=== PATIENT | female | born 1965 | race Caucasian/White ===

== ENCOUNTER 2021-11-08 16:55 | Inpatient (IN) ==
[2021-11-08] MEDS ORDERED: cefTRIAXone SODIUM 2,000 MG/70 ML BAG IV STA (18:07)
[2021-11-08] MEDS ORDERED: SODIUM CHLORIDE 0.9% 1000ML 1,000 ML IV ONE (18:07)
--- NOTE | 2021-11-08 18:14 | Emergency Department Note ---
History of Present Illness General Chief complaint: Leg Injury/Pain Time Seen by Provider: 11/08/21 17:56 History of Present Illness Maximum Pain Intensity: 10 This 56-year-old female patient presents to the emergency department today via private vehicle for evaluation of concern for left lower extremity redness and swelling. The patient states she fell while in [place] September 29. She states she broke her tibia/fibula and had surgery on September 30 in [place]. She states she was admitted to the hospital then subsequently spent 3 weeks in a nursing facility for rehab. The next day, after she was discharged, her daughter drove her back to [place] from [place]. She states approximately 1 to 2 weeks ago, she noticed some redness and increased swelling and pain of the left lower extremity. She has a home health nurse who contacted her PCP, requesting antibiotics for an infection. The patient states there has been some increased discharge from the surgical site. She denies any associated fever. She has been taking Keflex for the past several days with no improvement in her symptoms. She notes her's PCP has not seen her for this problem. She is scheduled to see [facility] orthopedics on 11/16/2021, but has not followed up locally with anybody regarding her injury. The patient denies any body aches, chills, nausea, vomiting, headache, dizziness, other associated symptoms. She denies any history of DVT or PE. She rates her pain 10/10 with no relief. Past Med/Surg History Medical History Degenerative disc disease GERD (gastroesophageal reflux disease) Hypertension Pre-diabetes Social History Smoking Status: Never smoker Feels Safe at Home: Yes Review of Systems A total of 10 systems reviewed and were otherwise negative Physical Exam Vital Signs Vital Signs - 24 hr 11/08/21 16:52 11/08/21 19:25 11/08/21 21:12 Temperature 36.4 C L Temperature Source Oral Pulse Rate 99 H Pulse Rate [Apical] 79 81 Pulse Rhythm [Apical] Regular Regular Pulse Strength [Apical] Normal Normal Respiratory Rate 18 22 20 Respiratory Effort / Characteristics Non-Labored Non-Labored Spontaneous Non-Labored Spontaneous Respiratory Depth Normal Normal Normal Respiratory Pattern Regular Blood Pressure 134/67 Blood Pressure [Right Arm] 126/81 134/62 Blood Pressure Mean 89 Blood Pressure Mean [Right Arm] 96 86 Pulse Oximetry 95 95 96 Oxygen Delivery Method Room Air Room Air Sepsis Recent Fever Within 48 Hours No Sepsis New/Unexplained Change in Mental Status No Sepsis Action Taken by Nursing No Action Required VITALS: Vitals are noted on the nurse's note and reviewed by myself. Vital signs stable. GENERAL: This is a 56-year-old obese white female, in no acute distress, nondi aphoretic, well-developed well-nourished. SKIN: The skin was without rashes, erythema, edema, or bruising. There is no tenting of the skin. Capillary refill less than 2 seconds. HEAD: Normocephalic atraumatic. EYES: Conjunctivae without injection, sclerae without icterus. NECK: Supple without nuchal rigidity. Cervical spine is nontender. No JVD. HEART: Regular rate and rhythm without murmurs gallops or rubs. LUNGS: Clear to auscultation bilaterally without wheezes, rales or rhonchi. No retractions or accessory muscle use. ABDOMEN: Positive bowel sounds x 4. Normal tympanic percussion. Soft, nontender, without masses or organomegaly. Holcomb sign negative. No guarding or rebound tenderness. MUSCULOSKELETAL: Faint erythema and edema noted at the left lower extremity extending from the knee to the toes. There is diffuse tenderness to palpation. There are surgical incision sites on the lateral and medial aspect of the proximal left tibia/fib with open wounds and active discharge in these areas. Otherwise, no muscle atrophy, erythema, or edema noted. Full range of motion without joint tenderness in all extremities. Normal gait. Strength 5/5 throughout. NEURO: Patient was alert and oriented to person place and time. Normal sensation to light and sharp touch. Deep tendon reflexes 2+ throughout. No focal neurological deficits. Course Course The patient was seen and evaluated as above. An order was placed for continuous cardiac monitoring. The monitor shows a normal sinus rhythm at a rate of 79 bpm. IV access obtained, labs drawn. Patient medicated with IV fluids and Rocephin. X-ray imaging performed and reviewed by myself and radiologist as noted. Labs reviewed by myself. I discussed the case with my attending physician. Ultrasound imaging performed and reviewed by myself and radiologist as noted. I discussed the findings with the patient at bedside. I discussed the case with my attending. She did see and evaluate the patient. Retained staple was removed. I discussed the case with ED case edie. I discussed the case with [facility] He did agree to see and evaluate the patient for admission. I discussed the case with Dr. Rodriguez. He did agree to consult on the patient tomorrow. He did review images and was agreeable with DVT treatment at this time, will discontinue or adjust if the patient will require management in the operating room. Administered Medications Discontinued Medications Ceftriaxone Sodium (Rocephin) 2,000 mg in 70 mls @ 140 mls/hr IV NOW STA Stop: 11/08/21 18:36 Last Infusion: 11/08/21 20:36 Dose: 0 mls/hr Documented by: [id number] Admin: 11/08/21 19:32 Dose: 140 mls/hr Documented by: [id number] Sodium Chloride (Nss 1000ml) 1,000 mls @ 999 mls/hr IV .Q1H1M ONE Stop: 11/08/21 19:07 Last Infusion: 11/08/21 20:36 Dose: 0 mls/hr Documented by: [id number] Admin: 11/08/21 19:32 Dose: 999 mls/hr Documented by: [id number] Morphine Sulfate (Morphine Sulfate 4 Mg/Ml 1 Ml Carp\Vial) 4 mg IV NOW STA Stop: 11/08/21 21:49 Last Admin: 11/08/21 22:00 Dose: 4 mg Documented by: [id number] Ondansetron HCl (Ondansetron Inj 2 Mg/Ml 2 Ml Vial) 4 mg IV NOW STA Stop: 11/08/21 21:49 Last Admin: 11/08/21 22:00 Dose: 4 mg Documented by: [id number] Medical Decision Making Differential Diagnosis Cellulitis, abscess, MRSA infection, DVT, necrotizing fasciitis, dermatitis, drug eruption, allergic reaction, as well as other pathologies. Medical Records Attestation: I reviewed the patient's medical records. Home Medications Current Medication List: was personally reviewed by me Laboratory Data No leukocytosis, anemia, thrombocytopenia. Renal, hepatic function, and electrolytes without significant abnormality. ESR 58, CRP 0.58. Result diagrams: 11/08/21 19:09 11/08/21 19:09 Lab Results 11/08/21 11/08/21 11/08/21 Range/Units 19:09 19:09 19:09 WBC 6.99 (4.8-10.8) K/uL RBC 4.44 (4.2-5.4) M/uL Hgb 12.5 (12.0-16.0) g/dL Hct 39.7 (37-47) % MCV 89.4 (80-100) fL MCH 28.2 (25-34) pg MCHC 31.5 L (32-36) g/dL RDW Std Deviation 51.1 H (36.4-46.3) fL RDW Coeff of Italo 15.7 H (11.5-14.5) % Plt Count 371 (130-400) K/uL MPV 8.8 (7.4-10.4) fL Neutrophils % (Manual) 67.3 % Lymphocytes % (Manual) 24.1 % Monocytes % (Manual) 4.3 % Eosinophils % (Manual) 4.3 % Neutrophils # (Manual) 4.70 (1.4-6.5) K/uL Total Absolute Neuts 4.70 (1.4-6.5) K/uL Lymphocytes # (Manual) 1.68 (1.2-3.4) K/uL Total Abs Lymphocytes 1.68 (1.2-3.4) K/uL Monocytes # (Manual) 0.30 (0.11-0.59) K/uL Eosinophils # (Manual) 0.30 (0-0.5) K/uL RBC Morphology Unremarkable ESR 58 H (0-30) mm/hr Sodium 134 L (136-145) mmol/L Potassium 4.6 (3.5-5.1) mmol/L Chloride 102 (98-107) mmol/L Carbon Dioxide 24 (21-32) mmol/L Anion Gap 8 (3-11) BUN 16 (6-23) mg/dl Creatinine 0.57 L (0.6-1.2) mg/dl Est Cr Clr Drug Dosing Not Reportable Est GFR ( Amer) 121.0 ml/min Est GFR (Non-Af Amer) 104.4 ml/min BUN/Creatinine Ratio 28.1 H (10-20) Glucose 119 H (70-99(Fasting)) mg/dl Calcium 10.8 H (8.5-10.1) mg/dl Total Bilirubin 0.4 (0.2-1.0) mg/dl AST 14 (13-39) U/L ALT 15 (7-52) U/L Alkaline Phosphatase 85 (34-104) U/L C-Reactive Protein 0.58 H (0-0.5) mg/dl Total Protein 7.6 (6.0-8.3) gm/dl Albumin 4.1 (3.4-5.0) gm/dl Globulin 3.5 (2.5-4.0) gm/dl Albumin/Globulin Ratio 1.2 (0.9-2) Imaging Data Radiologist's Impression: Tibia/Fibula X-Ray 11/08/21 18:07 XR tibia fibula LT 2V CLINICAL HISTORY: LLE pain, red, swelling, s/p surgery 09/30/2021 Comparison: None available at the time of this dictation. TECHNIQUE: 2 radiographic views of the left leg were obtained. FINDINGS: There is plate and screw fixation hardware about the tibia. Radiolucencies are seen compatible with fractures with bony bridging compatible with healing changes. The alignment is anatomic. Joint spaces are well-preserved. Soft tissue swelling is seen. This is most prominent about the knee. IMPRESSION: 1. Soft tissue swelling is seen most prominently about the knee, clinical correlation for cellulitis is recommended. 2. Comminuted fracture of the tibial plateau which is likely subacute, transfixed by plate and screw fixation and with healing changes. ACT 112: Negative or not required by law. Electronically signed by: Mykel Hodges M.D. 11/08/2021 7:05 PM Venous Doppler Study 11/08/21 18:07 US venous doppler LE LT CLINICAL HISTORY: pain, red, swelling, s/p surg 09/30/2021 TECHNIQUE: Left lower extremity real-time compression venous ultrasound with Color Doppler imaging. Utilizing real-time ultrasonic imaging multiple real time high-resolution ultrasonic images with compression and noncompression maneuvers of the deep venous system in addition to color doppler imaging were performed from the common femoral vein through the proximal calf veins. COMPARISON: None available at the time of this dictation. FINDINGS: Limited exam due to patient intolerance. A nonocclusive thrombus is seen in the left common femoral vein. No additional thrombus is noted. Impression: Nonocclusive thrombus is in the left common femoral vein. ACT 112: Negative or not required by law. Electronically signed by: Mykel Hodges M.D. 11/08/2021 8:57 PM Blood Pressure Blood Pressure Findings: Normal blood pressure MDM Narrative This 56-year-old female patient presents to the emergency department today approximately 5 weeks status post surgery for left tibial plateau and fibular fracture. Patient does have hardware placed. She developed some increased redness, swelling, and discharge from dehisced areas of the incision sites on the left lower extremity was concern for infection. Given the patient's recent surgery, admission to rehab facility, as well as long car ride from [place] to [place], I am highly concerned for DVT. Ultrasound imaging was positive for thrombus in the left common femoral vein. The patient has not followed with local orthopedics and does not have any established care here locally. Given these barriers to care, I am concerned the patient will struggle with outpatient treatment for the DVT. I do also feel that she will not need orthopedic consultation. The [facility]. I did discuss the case with the [facility] orthopedics surgeon on- call, Dr. Rodriguez. He did review images and agreed to see the patient tomorrow in consultation. Please see hospitalist and orthopedics dictation regarding ongoing management and care of this patient. The chart was completed utilizing [employer] Speech voice recognition software. Grammatical errors, random word insertions, pronoun errors, and incomplete sentences are an occasional consequence of this system due to software limitations, ambient noise, and hardware issues. Any formal questions or concerns about the content, text, or information contained within the body of this dictation should be directly addressed to the provider for clarification. Impression & Plan Acute deep vein thrombosis (DVT) of left lower extremity, Closed fracture of tibial plateau, Deep incisional surgical site infection Discharge Plan Visit Data Chief Complaint: Leg Injury/Pain ED Provider: Kristel Oh ED Midlevel Provider: Rocio Norman Discharge Problem: Acute deep vein thrombosis (DVT) of left lower extremity, Closed fracture of tibial plateau, Deep incisional surgical site infection Patient Disposition: Admitted As Inpatient Forms Stand Alone Forms: [facility] Referrals Referrals: PCP,NO [Primary Care Provider] - Discharge Problem: Acute deep vein thrombosis (DVT) of left lower extremity Qualifiers: Affected thrombotic vein of extremity: femoral Qualified Code(s): I82.412 - Acute embolism and thrombosis of left femoral vein Closed fracture of tibial plateau Qualifiers: Encounter type: sequela Laterality: left Qualified Code(s): S82.142S - Displaced bicondylar fracture of left tibia, sequela
--- NOTE | 2021-11-08 19:06 | XRay Report ---
XR tibia fibula LT 2V CLINICAL HISTORY: LLE pain, red, swelling, s/p surgery 09/30/2021 Comparison: None available at the time of this dictation. TECHNIQUE: 2 radiographic views of the left leg were obtained. FINDINGS: There is plate and screw fixation hardware about the tibia. Radiolucencies are seen compatible with f ractures with bony bridging compatible with healing changes. The alignment is anatomic. Joint spaces are well-preserved. Soft tissue swelling is seen. This is most prominent about the knee. IMPRESSION: 1. Soft tissue swelling is seen most prominently about the knee, clinical correlation for cellulitis is recommended. 2. Comminuted fracture of the tibial plateau which is likely subacute, transfixed by plate and screw fixation and with healing changes. ACT 112: Negative or not required by law. Electronically signed by: Mykel Hodges M.D. 11/08/2021 7:05 PM
[2021-11-08 19:56] LABS: Alanine Aminotransferase 15 U/L (7-52); Albumin Globulin Ratio 1.2 (0.9-2); Albumin Level 4.1 gm/dl (3.4-5.0); Alkaline Phosphatase 85 U/L (34-104); Anion Gap 8 (3-11); Aspartate Aminotransferase 14 U/L (13-39); BUN Creatinine Ratio 28.1 (10-20); Bilirubin,Total 0.4 mg/dl (0.2-1.0); Blood Urea Nitrogen 16 mg/dl (6-23); C Reactive Protein 0.58 mg/dl (0-0.5); Calcium 10.8 mg/dl (8.5-10.1); Carbon Dioxide 24 mmol/L (21-32); Chloride 102 mmol/L (98-107); Est GFR (Non-African American) 104.4 ml/min; Globulin 3.5 gm/dl (2.5-4.0); Glucose 119 mg/dl (70-99(Fasting)); Potassium 4.6 mmol/L (3.5-5.1); Sodium 134 mmol/L (136-145); Total Protein 7.6 gm/dl (6.0-8.3)
[2021-11-08 19:57] LABS: Hematocrit (blood only) 39.7 % (37-47); Hemoglobin 12.5 g/dL (12.0-16.0); Mean Corpuscular Hemoglobin 28.2 pg (25-34); Mean Corpuscular Hgb Conc 31.5 g/dL (32-36); Mean Corpuscular Volume 89.4 fL (80-100); Mean Platelet Volume 8.8 fL (7.4-10.4); Platelet Count 371 K/uL (130-400); RDW Coefficient of Variation 15.7 % (11.5-14.5); RDW Standard Deviation 51.1 fL (36.4-46.3); Red Blood Count 4.44 M/uL (4.2-5.4); White Blood Count 6.99 K/uL (4.8-10.8)
[2021-11-08 20:09] LABS: ALC (manual) 1.68 K/uL (1.2-3.4); Eosinophils % (manual) 4.3 %; Lymphocytes # (manual) 1.68 K/uL (1.2-3.4); Lymphocytes % (manual) 24.1 %; Monocytes % (manual) 4.3 %; Neutrophils % (manual) 67.3 %; RBC Morphology Unremarkable
--- NOTE | 2021-11-08 20:58 | Ultrasound Report ---
US venous doppler LE LT CLINICAL HISTORY: pain, red, swelling, s/p surg 09/30/2021 TECHNIQUE: Left lower extremity real-time compression venous ultrasound with Color Doppler imaging. U tilizing real-time ultrasonic imaging multiple real time high-resolution ultrasonic images with compr ession and noncompression maneuvers of the deep venous system in addition to color doppler imaging we re performed from the common femoral vein through the proximal calf veins. COMPARISON: None available at the time of this dictation. FINDINGS: Limited exam due to patient intolerance. A nonocclusive thrombus is seen in the left common femoral v ein. No additional thrombus is noted. Impression: Nonocclusive thrombus is in the left common femoral vein. ACT 112: Negative or not required by law. Electronically signed by: Mykel Hodges M.D. 11/08/2021 8:57 PM
[2021-11-08] MEDS ORDERED: ONDANSETRON INJ 2 MG/ML 2 ML VIAL IV STA (21:48)
[2021-11-08] MEDS ORDERED: MoRPHine SULFATE 4 MG/ML 1 ML CARP\\VIAL IV STA (21:48)
--- NOTE | 2021-11-08 23:00 | Emergency Department Note ---
ED Visit Note I was consulted by the Advanced Practice Provider. I saw the patient personally and performed a substantive portion of the visit. This includes aspects of the HPI, MDM, diagnostic interpretations, and disposition/plan. We did remove dressings to visualize incisions and drainage from wounds. Staple seen on xray was noted on exam. Patient updated on all results. . : Acute deep vein thrombosis (DVT) of left lower extremity Qualifiers: Affected thrombotic vein of extremity: femoral Qualified Code(s): I82.412 - Acute embolism and thrombosis of left femoral vein Closed fracture of tibial plateau Qualifiers: Encounter type: sequela Laterality: left Qualified Code(s): S82.142S - Displaced bicondylar fracture of left tibia, sequela
[2021-11-09] MEDS ORDERED: oxyCODONE HCL IR 5 MG TAB (IMMEDIATE RELEASE) PO PRN
[2021-11-09] MEDS ORDERED: VANCOMYCIN CONSULT ACTIVE PRN
[2021-11-09] MEDS ORDERED: POLYETHYLENE (MIRALAX) 17 GM PACK PO PRN
[2021-11-09] MEDS ORDERED: Heparin IV Adult Wt-Based Standard *NO* Bolus Protocol IV ONE
[2021-11-09] MEDS ORDERED: VANCOMYCIN HCL 1,000 MG in SODIUM CHLORIDE 0.9% 250 ML IV SCH
[2021-11-09] MEDS ORDERED: PIPERACILLIN/TAZOBACTAM 3.375 GM in DEXTROSE 5% 100 ML IV SCH
[2021-11-09] MEDS ORDERED: HEPARIN SODIUM/DEXTROSE 25,000 UNITS/500 ML BAG IV SCH
[2021-11-09] MEDS ORDERED: ACETAMINOPHEN 325 MG TAB PO PRN
[2021-11-09] MEDS ORDERED: CARBOHYDRATES FOR HYPOGLYCEMIA PO PRN (00:45)
[2021-11-09] MEDS ORDERED: GLUCAGON FOR INJ 1 MG VIAL IM PRN (00:45)
[2021-11-09] MEDS ORDERED: GLUCOSE 40% GEL 15 GM TUBE PO PRN (00:45)
[2021-11-09] MEDS ORDERED: DEXTROSE 50% 50 ML SYRINGE IV PRN (00:45)
[2021-11-09] MEDS ORDERED: GLUCOSE 10 TABS/TUBE PO PRN (00:45)
[2021-11-09] MEDS ORDERED: PIPERACILLIN/TAZOBACTAM 4.5 GM in DEXTROSE 5% 100 ML IV ONE (01:00)
[2021-11-09] MEDS: SODIUM CHLORIDE 0.9% 1000ML 1,000 ML IV SCH ×2 (01:14→20:49)
--- NOTE | 2021-11-09 01:43 | History and Physical Report ---
DATE OF ADMISSION: 11/08/2021. CHIEF COMPLAINT: Left leg pain. HISTORY OF PRESENT ILLNESS: This is a 56-year-old female with past medical history significant for morbid obesity, history of sleep apnea, but not using CPAP because since she moved from [place] three years ago, she lost her CPAP and not using it, history of hypertension, GERD, history of prediabetes. Presents with left lower extremity infection. The patient was in [place] in the month of September and she had a fall in her daughter's porch on 09/29/21 and had left tibia-fibula fracture status post admitted to hospital for surgical repair 09/30/21 and was seen in a retirement for 3 weeks and on 10/22/2021, she was discharged from retirement and daughter drove her back to [place] the next day on 10/23/2021 and she was in a car for 28 hours. She lives with her sister and she is now having poor ambulatory status and she is not ambulating, she could not put weight on the leg. She only slides from the bed and has a bedside commode. Her family doctor about a week ago given Keflex for 1 week, which she has still 2 more days to go.. She made appointment with orthopedics, but it is not until next month. She says he is not getting better and a lot of pain in the leg which brought her to the hospital. Currently, the patient denies any fever or chills. No headache, no dizziness, no blurred visions, no earache, no runny nose, no sore throat, no cough, no chest pain, no shortness of breath. No nausea, no vomiting, no abdominal pain. Normal bowel and bladder movements.Says she has gallbladder disease and has on and off nausea and diarrhea. ALLERGIES: HYDROXYZINE. PAST MEDICAL HISTORY: As mentioned above. PAST SURGICAL HISTORY: Bilateral hand surgeries, left tibia-fibula surgery. MEDICATIONS: The patient is on aspirin 81 mg p.o. daily, Keflex 500 mg p.o. t.i.d., vitamin D 50,000 Units p.o. weekly, metoprolol succinate 25 mg p.o. a.m., Zofran 4 mg p.o. t.i.d. p.r.n., oxycodone 2.5 to 5 mg p.o. t.i.d. p.r.n., Protonix 40 mg p.o. daily. FAMILY HISTORY: Significant for mother had diabetes and stroke; father had diabetes, heart disease, Alzheimer dementia, back problems. SOCIAL HISTORY: Quit smoking 17 years ago. Alcohol, occasional. 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 Lives with her sister currently. REVIEW OF SYSTEMS: As per HPI. Rest of review of systems is negative. PHYSICAL EXAMINATION: GENERAL: The patient is morbidly obese, not in acute distress. VITAL SIGNS: Temperature 36.4, pulse 82, respiratory rate 20, blood pressure 107/74, oxygen 95% on room air. HEENT: Pupils equal, round and reactive to light. Oral mucosa, absent teeth and moist. NECK: No JVD, no neck masses. CARDIOVASCULAR: S1 and S2 heard. Regular rate and rhythm. No murmur, no gallop. RESPIRATORY SYSTEM: Normal AP diameter. No accessory muscle use. No wheezing, no crackles. ABDOMEN: Soft. Bowel sounds are present, nontender, no distention. CENTRAL NERVOUS SYSTEM: Alert and oriented. Speech is clear. No facial droop. Obeys simple commands. Insight is good. Moves extremities. EXTREMITIES: Left tibia-fibula surgical site has deep open wound and drainage seen. Some erythematous changes seen. Some swelling seen. LABORATORY DATA: WBC , hemoglobin 12.5, hematocrit of 10.7, platelets 371. ESR 58. Sodium 134, potassium 4.6, chloride 102, CO2 of 24, BUN 16, creatinine 0.5, serum glucose 119, calcium 10.8, total bilirubin 0.4, AST 14, ALT 15, alkaline phosphatase 85. C-reactive protein 0.5. SARS-CoV-2 rapid test negative. IMAGING DATA: Venous Doppler is showing nonocclusive thrombus in the left common femoral vein. Tibia-fibula x-ray on the left side, soft tissue swelling that is most prominent about the knee, clinical correlation for cellulitis is recommended. Comminuted fracture of the tibia, fibula, which is likely subacute. with plate and screw fixation with healing changes. ASSESSMENT AND PLAN: This is a 56-year-old female with morbid obesity, hypertension, prediabetes, gastroesophageal reflux disease, who presents with infected left tibia-fibula surgical site. 1. Infected left tibia-fibula surgical site. The patient fell on 09/29/2021, had surgery on 09/30/2021 at [place]. Having some drainage at the surgical site. Seems to have been prescribed Keflex by PCP about a week ago to complete 7 days of course and two days to finish course but , not getting better, so came here. X-ray shows possible cellulitis. Blood culture and wound culture done in the ER. She was given Rocephin. Will continue with vancomycin and Zosyn. Ortho was notified by the ER. Plan to evaluate in the morning. Will admit the patient and monitor.Will get pre operative ekg and cxr and if ok patient should be at acceptable risk to proceed with any planned surgery Await ortho input. 2. Nonocclusive left common femoral deep venous thrombosis. Will place on IV heparin. If a procedure is planned, will then hold it. 3. History of prediabetes: hold home med. Follow HbA1c levels. Insulin sliding scale. 4. History of hypertension: Continue metoprolol. 5. Gastroesophageal reflux disease: Continue Protonix. 6. Morbid obesity: Needs counseling. 7. Deep venous thrombosis prophylaxis: On IV heparin. DISPOSITION: Closely monitor in the medical floor. PT, OT prior to discharge. Social service to help with discharge planning. Job ID: [id number] [facility]OSPITALAlecia
[2021-11-09 02:16] LABS: Basophils # (auto) 0.01 K/uL (0-0.2); Basophils % (auto) 0.1 %; Eosinophils # (auto) 0.44 K/uL (0-0.5); Eosinophils % (auto) 6.4 %; Hematocrit (blood only) 38.7 % (37-47); Immature Granulocytes # (auto) 0.01 K/uL (0.00-0.02); Immature Granulocytes % (auto) 0.1 %; Lymphocytes # (auto) 2.24 K/uL (1.2-3.4); Lymphocytes % (auto) 32.8 %; Mean Corpuscular Hemoglobin 27.7 pg (25-34); Mean Corpuscular Volume 89.4 fL (80-100); Mean Platelet Volume 8.9 fL (7.4-10.4); Monocytes # (auto) 0.56 K/uL (0.11-0.59); Monocytes % (auto) 8.2 %; Neutrophils # (auto) 3.57 K/uL (1.4-6.5); Neutrophils % (auto) 52.4 %; Platelet Count 347 K/uL (130-400); RDW Coefficient of Variation 15.6 % (11.5-14.5); Red Blood Count 4.33 M/uL (4.2-5.4); White Blood Count 6.83 K/uL (4.8-10.8)
[2021-11-09 02:29] LABS: Partial Thromboplastin Ratio 0.9; Partial Thromboplastin Time 24.2 Seconds (21.0-31.0); Prothrombin Time 10.4 Seconds (9.0-12.0)
[2021-11-09] MEDS ORDERED: VANCOMYCIN HCL 2,750 MG in SODIUM CHLORIDE 0.9% 500 ML IV ONE (04:00)
[2021-11-09] MEDS: PIPERACILLIN/TAZOBACTAM 4.5 GM in DEXTROSE 5% 100 ML IV SCH ×3 (06:48→22:06)
[2021-11-09] MEDS: PANTOprazole 40 MG TAB PO SCH (07:37)
[2021-11-09] MEDS: INSULIN ASPART PER UNIT SC SCH ×4 (08:44→21:39)
--- NOTE | 2021-11-09 09:06 | Orthopedic Consultation ---
Date of Consultation November 09, 2021 Assessment & Plan (1) Deep incisional surgical site infection: 4 weeks s/p left knee status post open reduction internal fixation of a left proximal tibia-fibula fracture, concern for postoperative infection and non-healing wound. She is currently on IV Zosyn and vancomycin. Cultures that were taken in the emergency room are currently pending. n.p.o. this morning but she is very angry with me on that. States that she did not eat much yesterday. I did explain to her the importance of being n.p.o. in preparation for possible surgical incision and drainage. I attempted to get a consent for possible Incision and drainage later today with Dr. Rodriguez, but she would not let me go over the consent with her. She said that it's "too much and will break her". Also reveals a normal white blood cell count but an elevated ESR and CRP. Keep her n.p.o. until seen and evaluated by Dr. Rodriguez and a final decision is made. I do think that she most likely would benefit from incision and drainage. She understands and agrees with the plan although she is very upset with me about not letting her eat and would like to "leave this place". Present on Admission?: Yes Supervising Physician Co-Signing Physician Notes I, Dr. Rodriguez, saw and examined the patient and agree with the above findings and plan of care. I too tried to go over the consent and she refused to hear the risks with same complaint as above. She was agreeable to move forward with surgery for I&D LLE and possible wound vac placement. She was placed on the add- on schedule for later today. Continue NPO & IV Abx. History of Present Illness Reason for Consultation: Postoperative wound infection left knee, status post a reduction internal fixation left proximal tib-fib fracture in early September. Requesting Physician: Alecia Rodriguez MD Attending Physician: Alondra Gong MD History of Present Illness Patient is a 56-year-old female who was admitted to [facility] for concerns of left postoperative knee infection. She was in [place] at the beginning of September visiting her daughter and fell off porch. She sustained a left proximal tibial and fibular plateau fractures. She underwent an open reduction internal fixation there. She recently came back to [place] on October 23 by car ride. She did develop some increased pain and swelling in her left leg. She presented to the emergency room yesterday and was found to have a DVT of her left common femoral vein. Also concerns for an open draining wound and probable infection. She states its been draining since Monday. Is been getting worse with pain. She is noticed worsening swelling and redness. She denies any fevers or chills but states she gets frequent hot and cold flashes. She denies any new injury. Denies any pain anywhere else. States that her leg is just very painful. Allergies Allergy/AdvReac Type Severity Reaction Status Date / Time hydroxyzine Allergy Severe Anaphylaxis Verified 11/09/21 00:25 Home Medications Medication Instructions Recorded Confirmed Type acetaminophen 500 mg tablet 1,000 mg PO BID PRN 11/08/21 11/08/21 History aspirin 81 mg tablet,delayed 81 mg PO DAILY 11/08/21 11/08/21 History release cephalexin 500 mg capsule 500 mg PO TID 11/08/21 11/08/21 History cholecalciferol (vitamin D3) 1,250 50,000 unit PO WK 11/08/21 11/08/21 History mcg (50,000 unit) tablet dapagliflozin 10 mg tablet 10 mg PO DAILY 11/08/21 11/08/21 History (Farxiga) ibuprofen 200 mg tablet (Motrin IB) 600 mg PO BID PRN 11/08/21 11/08/21 History metoprolol succinate 25 mg 25 mg PO QPM 11/08/21 11/08/21 History tablet,extended release 24 hr naproxen sodium 220 mg tablet 440 mg PO .WITH MAXINE MEAL PRN 11/08/21 11/08/21 History (Aleve) ondansetron HCl 4 mg tablet 4 mg PO TID PRN 11/08/21 11/08/21 History oxycodone 5 mg tablet 2.5 - 5 mg PO TID PRN 11/08/21 11/08/21 History pantoprazole 40 mg tablet,delayed 40 mg PO DAILY 11/08/21 11/08/21 History release Patient History Medical History Degenerative disc disease GERD (gastroesophageal reflux disease) Hypertension Pre-diabetes Spinal stenosis Tibia/fibula fracture Social History Smoking Status: Never smoker Second Hand Exposure: No; Do You Dip or Chew Tobacco: No; Hx Alcohol Use: Yes Alcohol type: beer Hx Substance Use: No Preferred Language: Swedish Carbonizer Required: No Beliefs That Will Affect Care: None Current Living Situation Comment: SISTER LIVES WITH HER Feels Safe at Home: Yes Safety Concerns: Feels Safe At This Time Assistive Devices: Wheelchair Review of Systems Review of Systems: As per HPI. Physical Exam Musculoskeletal: Exam of her left lower extremity reveals edema down into her left foot. Her left foot is nontender with palpation. Her posterior tibial and dorsalis pedis pulses are 1+. Distal sensation seems to be normal. She does have full range of motion of her ankle and toes without any discomfort. She is able to independently straight leg raise her left leg. She can also flex her left knee to about 80 degrees today. She has no pain with that although she does have pain with palpation of her surgical incisions both medially and laterally. Laterally there are 2 open areas at the lateral incision proximally the most proximal incision does have some serous sanguinous, drainage coming from it. She also has about a nickel sized opening into the incision. No kelly rdware is seen through that opening but probably about 3 cm deep. Rest of the incision is intact but erythematous and tender to palpation. There is also warmth. The medial incision is also edematous and tender it is warm there is a small area that is draining some serous sanguinous yellow type drainage. Nothing is able to be expressed from it today but it is on the dressing. She tolerates gentle roll logrolling of her left leg. Calf is also tender to palpation. She is pretty much diffusely tender throughout the left leg. There are some mild erythema in the left calf area. Strength of her left leg is 5/5. Results & Data ([facility]) Vital Signs (Past 12 Hours) Vital Signs Temp Pulse Pulse Resp BP Pulse Ox 11/09/21 07:57 36.6 C 90 18 129/83 93 11/09/21 00:07 36.5 C 90 24 136/81 95 11/08/21 22:35 82 20 107/74 95 11/08/21 21:12 81 20 134/62 96 Laboratory Results 11/09/21 11/09/21 11/09/21 Range/Units 08:23 01:57 01:57 WBC 6.83 (4.8-10.8) K/uL RBC 4.33 (4.2-5.4) M/uL Hgb 12.0 (12.0-16.0) g/dL Hct 38.7 (37-47) % MCV 89.4 (80-100) fL MCH 27.7 (25-34) pg MCHC 31.0 L (32-36) g/dL RDW Std Deviation 51.0 H (36.4-46.3) fL RDW Coeff of Italo 15.6 H (11.5-14.5) % Plt Count 347 (130-400) K/uL MPV 8.9 (7.4-10.4) fL Immature Gran % (Auto) 0.1 % Neut % (Auto) 52.4 % Lymph % (Auto) 32.8 % Tyrrell % (Auto) 8.2 % Eos % (Auto) 6.4 % Baso % (Auto) 0.1 % Neut # (Auto) 3.57 (1.4-6.5) K/uL Lymph # (Auto) 2.24 (1.2-3.4) K/uL Tyrrell # (Auto) 0.56 (0.11-0.59) K/uL Eos # (Auto) 0.44 (0-0.5) K/uL Baso # (Auto) 0.01 (0-0.2) K/uL Immature Gran # (Auto) 0.01 (0.00-0.02) K/uL Neutrophils % (Manual) % Lymphocytes % (Manual) % Monocytes % (Manual) % Eosinophils % (Manual) % Neutrophils # (Manual) (1.4-6.5) K/uL Total Absolute Neuts (1.4-6.5) K/uL Lymphocytes # (Manual) (1.2-3.4) K/uL Total Abs Lymphocytes (1.2-3.4) K/uL Monocytes # (Manual) (0.11-0.59) K/uL Eosinophils # (Manual) (0-0.5) K/uL RBC Morphology ESR (0-30) mm/hr PT 10.4 (9.0-12.0) Seconds INR 1.0 (0.9-1.1) APTT 24.2 (21.0-31.0) Seconds PTT Ratio 0.9 Sodium (136-145) mmol/L Potassium (3.5-5.1) mmol/L Chloride (98-107) mmol/L Carbon Dioxide (21-32) mmol/L Anion Gap (3-11) BUN (6-23) mg/dl Creatinine (0.6-1.2) mg/dl Est Cr Clr Drug Dosing Est GFR ( Amer) ml/min Est GFR (Non-Af Amer) ml/min BUN/Creatinine Ratio (10-20) Glucose (70-99(Fasting)) mg/dl POC Glucose 104 H (70-99) mg/dl Calcium (8.5-10.1) mg/dl Total Bilirubin (0.2-1.0) mg/dl AST (13-39) U/L ALT (7-52) U/L Alkaline Phosphatase (34-104) U/L C-Reactive Protein (0-0.5) mg/dl Total Protein (6.0-8.3) gm/dl Albumin (3.4-5.0) gm/dl Globulin (2.5-4.0) gm/dl Albumin/Globulin Ratio (0.9-2) SARS-CoV-2, RNA, NAAT (NEGATIVE) 11/08/21 11/08/21 11/08/21 Range/Units 22:01 19:09 19:09 WBC (4.8-10.8) K/uL RBC (4.2-5.4) M/uL Hgb (12.0-16.0) g/dL Hct (37-47) % MCV (80-100) fL MCH (25-34) pg MCHC (32-36) g/dL RDW Std Deviation (36.4-46.3) fL RDW Coeff of Italo (11.5-14.5) % Plt Count (130-400) K/uL MPV (7.4-10.4) fL Immature Gran % (Auto) % Neut % (Auto) % Lymph % (Auto) % Tyrrell % (Auto) % Eos % (Auto) % Baso % (Auto) % Neut # (Auto) (1.4-6.5) K/uL Lymph # (Auto) (1.2-3.4) K/uL Tyrrell # (Auto) (0.11-0.59) K/uL Eos # (Auto) (0-0.5) K/uL Baso # (Auto) (0-0.2) K/uL Immature Gran # (Auto) (0.00-0.02) K/uL Neutrophils % (Manual) % Lymphocytes % (Manual) % Monocytes % (Manual) % Eosinophils % (Manual) % Neutrophils # (Manual) (1.4-6.5) K/uL Total Absolute Neuts (1.4-6.5) K/uL Lymphocytes # (Manual) (1.2-3.4) K/uL Total Abs Lymphocytes (1.2-3.4) K/uL Monocytes # (Manual) (0.11-0.59) K/uL Eosinophils # (Manual) (0-0.5) K/uL RBC Morphology ESR 58 H (0-30) mm/hr PT (9.0-12.0) Seconds INR (0.9-1.1) APTT (21.0-31.0) Seconds PTT Ratio Sodium 134 L (136-145) mmol/L Potassium 4.6 (3.5-5.1) mmol/L Chloride 102 (98-107) mmol/L Carbon Dioxide 24 (21-32) mmol/L Anion Gap 8 (3-11) BUN 16 (6-23) mg/dl Creatinine 0.57 L (0.6-1.2) mg/dl Est Cr Clr Drug Dosing Not Reportable Est GFR ( Amer) 121.0 ml/min Est GFR (Non-Af Amer) 104.4 ml/min BUN/Creatinine Ratio 28.1 H (10-20) Glucose 119 H (70-99(Fasting)) mg/dl POC Glucose (70-99) mg/dl Calcium 10.8 H (8.5-10.1) mg/dl Total Bilirubin 0.4 (0.2-1.0) mg/dl AST 14 (13-39) U/L ALT 15 (7-52) U/L Alkaline Phosphatase 85 (34-104) U/L C-Reactive Protein 0.58 H (0-0.5) mg/dl Total Protein 7.6 (6.0-8.3) gm/dl Albumin 4.1 (3.4-5.0) gm/dl Globulin 3.5 (2.5-4.0) gm/dl Albumin/Globulin Ratio 1.2 (0.9-2) SARS-CoV-2, RNA, NAAT NEGATIVE (NEGATIVE) 11/08/21 Range/Units 19:09 WBC 6.99 (4.8-10.8) K/uL RBC 4.44 (4.2-5.4) M/uL Hgb 12.5 (12.0-16.0) g/dL Hct 39.7 (37-47) % MCV 89.4 (80-100) fL MCH 28.2 (25-34) pg MCHC 31.5 L (32-36) g/dL RDW Std Deviation 51.1 H (36.4-46.3) fL RDW Coeff of Italo 15.7 H (11.5-14.5) % Plt Count 371 (130-400) K/uL MPV 8.8 (7.4-10.4) fL Immature Gran % (Auto) % Neut % (Auto) % Lymph % (Auto) % Tyrrell % (Auto) % Eos % (Auto) % Baso % (Auto) % Neut # (Auto) (1.4-6.5) K/uL Lymph # (Auto) (1.2-3.4) K/uL Tyrrell # (Auto) (0.11-0.59) K/uL Eos # (Auto) (0-0.5) K/uL Baso # (Auto) (0-0.2) K/uL Immature Gran # (Auto) (0.00-0.02) K/uL Neutrophils % (Manual) 67.3 % Lymphocytes % (Manual) 24.1 % Monocytes % (Manual) 4.3 % Eosinophils % (Manual) 4.3 % Neutrophils # (Manual) 4.70 (1.4-6.5) K/uL Total Absolute Neuts 4.70 (1.4-6.5) K/uL Lymphocytes # (Manual) 1.68 (1.2-3.4) K/uL Total Abs Lymphocytes 1.68 (1.2-3.4) K/uL Monocytes # (Manual) 0.30 (0.11-0.59) K/uL Eosinophils # (Manual) 0.30 (0-0.5) K/uL RBC Morphology Unremarkable ESR (0-30) mm/hr PT (9.0-12.0) Seconds INR (0.9-1.1) APTT (21.0-31.0) Seconds PTT Ratio Sodium (136-145) mmol/L Potassium (3.5-5.1) mmol/L Chloride (98-107) mmol/L Carbon Dioxide (21-32) mmol/L Anion Gap (3-11) BUN (6-23) mg/dl Creatinine (0.6-1.2) mg/dl Est Cr Clr Drug Dosing Est GFR ( Amer) ml/min Est GFR (Non-Af Amer) ml/min BUN/Creatinine Ratio (10-20) Glucose (70-99(Fasting)) mg/dl POC Glucose (70-99) mg/dl Calcium (8.5-10.1) mg/dl Total Bilirubin (0.2-1.0) mg/dl AST (13-39) U/L ALT (7-52) U/L Alkaline Phosphatase (34-104) U/L C-Reactive Protein (0-0.5) mg/dl Total Protein (6.0-8.3) gm/dl Albumin (3.4-5.0) gm/dl Globulin (2.5-4.0) gm/dl Albumin/Globulin Ratio (0.9-2) SARS-CoV-2, RNA, NAAT (NEGATIVE) C-reactive protein 0.58 Cultures obtained in the ED are pending Diagnostic Findings US venous doppler LE LT CLINICAL HISTORY: pain, red, swelling, s/p surg 09/30/2021 TECHNIQUE: Left lower extremity real-time compression venous ultrasound with Color Doppler imaging. Utilizing real-time ultrasonic imaging multiple real time high-resolution ultrasonic images with compression and noncompression maneuvers of the deep venous system in addition to color doppler imaging were performed from the common femoral vein through the proximal calf veins. COMPARISON: None available at the time of this dictation. FINDINGS: Limited exam due to patient intolerance. A nonocclusive thrombus is seen in the left common femoral vein. No additional thrombus is noted. Impression: Nonocclusive thrombus is in the left common femoral vein. XR tibia fibula LT 2V CLINICAL HISTORY: LLE pain, red, swelling, s/p surgery 09/30/2021 Comparison: None available at the time of this dictation. TECHNIQUE: 2 radiographic views of the left leg were obtained. FINDINGS: There is plate and screw fixation hardware about the tibia. Radiolucencies are seen compatible with fractures with bony bridging compatible with healing changes. The alignment is anatomic. Joint spaces are well-preserved. Soft tissue swelling is seen. This is most prominent about the knee. IMPRESSION: 1. Soft tissue swelling is seen most prominently about the knee, clinical correlation for cellulitis is recommended. 2. Comminuted fracture of the tibial plateau which is likely subacute, transfixed by plate and screw fixation and with healing changes.
[2021-11-09] MEDS: DAPTOmycin 600 MG in SYRINGE 0 ML IV SCH (11:45)
[2021-11-09] MEDS ORDERED: ATROPINE SULFATE 0.1 MG/ML 10ML SYR IV PRN (14:04)
[2021-11-09] MEDS ORDERED: fentaNYL citrate 100 MCG/2 ML VIAL ONE (14:04)
[2021-11-09] MEDS ORDERED: ONDANSETRON INJ 2 MG/ML 2 ML VIAL IV PRN ×2 (14:04)
[2021-11-09] MEDS ORDERED: PHENYLEPHRINE 100MCG/ML 5ML SYR IV PRN (14:04)
[2021-11-09] MEDS ORDERED: LABETALOL HCL IV 5 MG/ML 20ML IV PRN (14:04)
[2021-11-09] MEDS ORDERED: MEPERIDINE HCL 25 MG/ML CARP/VIAL IV PRN (14:04)
[2021-11-09] MEDS ORDERED: ePHEDrine sulfate 50 MG/ML AMP IV PRN (14:04)
[2021-11-09] MEDS ORDERED: MIDAZOLAM HCL 1 MG/ML 2ML VIAL ONE (14:04)
--- NOTE | 2021-11-09 14:04 | Anesthesiology Consultation ---
Date of Service November 09, 2021 Assessment & Plan (1) Encounter for pre-operative examination: Chart Review Chart Review: Acceptable Risk for Surgery and Patient NOT seen in Pre Admission Testing Consults Requested none History Surgery Operation Date: 11/09/21 12:00 Proposed Procedures p Left Leg Incision and Drainage, Possible Wound Vac - Devin Wilmar Rodriguez MD Height/Weight Height: 5 ft 4 in Weight: 166 kg Allergies Allergy/AdvReac Type Severity Reaction Status Date / Time hydroxyzine Allergy Severe Anaphylaxis Verified 11/09/21 00:25 Medications Home Medications Medication Instructions Recorded Confirmed Last Taken acetaminophen 500 mg tablet 1,000 mg PO BID PRN 11/08/21 11/08/21 Unknown aspirin 81 mg tablet,delayed 81 mg PO DAILY 11/08/21 11/08/21 Unknown release cephalexin 500 mg capsule 500 mg PO TID 11/08/21 11/08/21 Unknown cholecalciferol (vitamin D3) 1,250 50,000 unit PO WK 11/08/21 11/08/21 Unknown mcg (50,000 unit) tablet dapagliflozin 10 mg tablet 10 mg PO DAILY 11/08/21 11/08/21 Unknown (Farxiga) ibuprofen 200 mg tablet (Motrin IB) 600 mg PO BID PRN 11/08/21 11/08/21 Unknown metoprolol succinate 25 mg 25 mg PO QPM 11/08/21 11/08/21 Unknown tablet,extended release 24 hr naproxen sodium 220 mg tablet 440 mg PO .WITH MAXINE MEAL PRN 11/08/21 11/08/21 Unknown (Aleve) ondansetron HCl 4 mg tablet 4 mg PO TID PRN 11/08/21 11/08/21 Unknown oxycodone 5 mg tablet 2.5 - 5 mg PO TID PRN 11/08/21 11/08/21 Unknown pantoprazole 40 mg tablet,delayed 40 mg PO DAILY 11/08/21 11/08/21 Unknown release Active Medications Generic Name Dose Route Start Last Admin Trade Name Freq PRN Reason Stop Dose Admin Heparin Sodium/Dextrose 25,000 units in 500 mls @ 0 mls/hr 11/09/21 00:00 11/09/21 11:33 Heparin Sodium/Dextrose IV 12/09/21 00:00 0 units/hr .Q0M RADHA 0 mls/hr Titration Protocol 0 UNITS/HR Sodium Chloride 1,000 mls @ 75 mls/hr 11/09/21 00:00 11/09/21 01:14 Nss 1000ml IV 12/09/21 00:00 75 mls/hr .[id number] RADHA Administration Piperacillin Sod/Tazobactam 120 mls @ 30 mls/hr 11/09/21 06:00 11/09/21 10:48 Sod 4.5 gm/ Dextrose IV 11/16/21 05:59 Infused Q8H RADHA Infusion Protocol Daptomycin 600 mg/ Syringe 12 mls @ 6 mls/min 11/09/21 12:00 11/09/21 11:45 IV 11/16/21 11:59 6 mls/min Q24H RADHA Administration Protocol Insulin Aspart 0 units 11/09/21 07:30 11/09/21 12:46 Insulin Aspart Per Unit SC 12/09/21 07:29 Not Given ACHS RADHA Oxycodone HCl 2.5 - 5 mg 11/09/21 00:00 11/09/21 07:36 Oxycodone Hcl Ir 5 Mg Tab (Immediate Release) PO 11/23/21 00:00 5 mg TID PRN Administration Pain Pantoprazole Sodium 40 mg 11/09/21 09:00 11/09/21 07:37 Pantoprazole 40 Mg Tab PO 12/09/21 08:59 40 mg DAILY RADHA Administration NPO Date Last Intake of Fluids: 11/09/21 Time Last Intake of Fluids: 07:00 Date Last Intake of Solids: 11/08/21 Time Last Intake of Solids: 23:00 Past Medical History Medical History Degenerative disc disease GERD (gastroesophageal reflux disease) Hypertension Morbid obesity Pre-diabetes Spinal stenosis Tibia/fibula fracture Social History Smoking Status: Never smoker Do You Dip or Chew Tobacco: No Hx Alcohol Use: Yes Alcohol type: beer alcohol intake frequency: holidays/special occasions only Hx Substance Use: No Physical Exam Vital Signs Last Vital Signs Temp 36.9 C 11/09/21 13:42 Pulse 84 11/09/21 13:42 Resp 20 11/09/21 13:42 BP 129/83 11/09/21 07:57 Pulse Ox 96 11/09/21 13:42 Testing Laboratory Results 11/09/21 01:57 11/08/21 19:09 PT 10.4 Seconds (9.0-12.0) 11/09/21 01:57 INR 1.0 (0.9-1.1) 11/09/21 01:57 APTT 24.2 Seconds (21.0-31.0) 11/09/21 01:57 11/08/21 22:00 Gram Stain - Final Leg,Left Deep Wound Culture - Preliminary Gram negative bacilli 11/09/21 11/09/21 12:00 08:23 POC Glucose 111 H 104 H Electrocardiogram Date: 11/09/21 Findings: + NSR @ (85) low voltage QRS
[2021-11-09] MEDS ORDERED: DEXAMETHASONE SOD INJ 4 MG/ML VIAL ONE (14:26)
[2021-11-09] MEDS ORDERED: ONDANSETRON INJ 2 MG/ML 2 ML VIAL ONE (14:26)
[2021-11-09] MEDS ORDERED: ROCURONIUM BROMIDE 10 MG/ML 5 ML VIAL IV ONE ×7 (14:26→16:38)
[2021-11-09] MEDS ORDERED: LIDOCAINE 2% 2 ML VIAL/AMP(20MG/ML) INFIL ONE (14:26)
[2021-11-09] MEDS ORDERED: PROPOFOL IV EMULSION 10 MG/ML 20 ML VIAL IV ONE (14:26)
[2021-11-09] MEDS ORDERED: SUCCINYLCHOLINE CHLORIDE 20 MG/ML 10 ML VIAL IV ONE (14:26)
[2021-11-09] MEDS ORDERED: BUPIVACAINE 0.5 % 5 MG/1 ML MPF 30ML VIAL ONE (14:33)
[2021-11-09] MEDS ORDERED: LIDOCAINE 1%/EPINEPHRINE 1:100,000 50 ML VIAL ONE (14:33)
[2021-11-09] MEDS ORDERED: ESMOLOL HCL INJ 10 MG/ML 10ML VIAL IV ONE (14:50)
--- NOTE | 2021-11-09 15:52 | Hospitalist Progress Note ---
Date of Service November 09, 2021 Assessment & Plan (1) Acute deep vein thrombosis (DVT) of left lower extremity: (2) Deep incisional surgical site infection: Plan: 56-year-old female with history significant for morbid obesity, history of sleep apnea, but not using CPAP because since she moved from [place] three years ago, she lost her CPAP and not using it, history of hypertension, GERD, history of prediabetes presented 11/08 to our ED w/ Left lower extremity infection. 1. Infected left tibia-fibula surgical site. The patient fell on 09/29/2021, had surgery on 09/30/2021 at [place]. Was in longterm for 2 weeks, discharged on 10/22/2021. --> her daughter drove her back 10/23/2021 to [employer] from [place]. She was in the car for 28 hours. 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 Follow-up admitting blood culture and wound culture. Continue with Dapto and Zosyn. Orthopedic on board, will likely need I&D. Resume heparin drip when cleared by orthopedics. 2. Nonocclusive left common femoral deep venous thrombosis: Patient had recent long drive/immobility and orthopedic surgery. On IV heparin drip, continue once cleared by orthopedics after I&D. Will likely need oral anticoagulation upon discharge. 3. Other chronic medical conditions: Prediabetes, HTN, GERD, morbid obesity Resume/continue with home meds as and when appropriate. Insulin sliding scale. 4. Deep venous thrombosis prophylaxis: Resume IV heparin drip when cleared by orthopedics. Admission and Anticipated Discharge Date Admission Date: November 08, 2021 Subjective Patient seen and examined at bedside as a follow-up of infected left tibia- fibula surgical site and nonocclusive left common femoral DVT. Patient was lying in bed, on room air, having conversation over the phone. At bedside-introduction, patient was angry and upset and did not want to carry any conversation or allow any examination. She had overall dissatisfaction with healthcare stemming from her experience in [place] continuing to infection currently as I can gather from her anger words at the moment. Tried multiple times, patient denied. RN was present at bedside. Physical Exam Physical Exam: On room air, not in obvious distress, moves arms and legs, was having conversation over the phone, articulating clear, angry, upset, did not allow examination, morbidly obese. Results & Data Results & Data ([facility]) Vital Signs (Past 12 Hours) Vital Signs Temp Pulse Resp BP Pulse Ox 11/09/21 13:42 36.9 C 84 20 96 11/09/21 07:57 36.6 C 90 18 129/83 93 (1) Acute deep vein thrombosis (DVT) of left lower extremity Affected thrombotic vein of extremity: femoral Qualified Code(s): I82.412 - Acute embolism and thrombosis of left femoral vein
[2021-11-09] MEDS ORDERED: SUGAMMADEX SODIUM 200 MG/2 ML VIAL IV ONE (16:35)
[2021-11-09 16:55] LABS: Partial Thromboplastin Ratio 0.9; Partial Thromboplastin Time 25.4 Seconds (21.0-31.0)
--- NOTE | 2021-11-09 17:00 | Post Operative Brief Note ---
Immediate Post Op Note v1 Date of Surgery November 09, 2021 Pre & Post Diagnosis Operation Date: 11/09/21 12:00 Pre-Op Diagnosis: left lower leg infection Post-Op Diagnosis: left lower leg infection and non-healing wound I identified the patient and participated in the time-out.: Yes Procedure Operation Date: 11/09/21 12:00 Actual Procedures p Left Leg Incision and Drainage - Devin Rodriguez MD Surgeon Devin Rodriguez MD Forging Press Operator Geovanny Blanco PA-C (No fellow avail) Estimated Blood Loss 75 Findings Consistent with Post-Op Diagnosis Fluids 1300 cc Specimens C&S LLE Lateral wound C&S LLE Medial Wound LLE soft tissue for pathology Anesthesia Type General Complications none
--- NOTE | 2021-11-09 17:01 | Operative Report ---
Post Operative Report Pre & Post Diagnosis Operation Date: 11/09/21 12:00 Pre-Op Diagnosis: left lower leg infection Post-Op Diagnosis: left lower leg infection and non-healing lateral wound I identified the patient and participated in the time-out.: Yes Procedure Operation Date: 11/09/21 12:00 Actual Procedures p Left Leg Incision and Drainage, Lateral and medial wounds - Devin Rodriguez MD Surgeon Devin Rodriguez MD Noc Analyst Geovanny Blanco PA-C (No fellow avail) Estimated Blood Loss 75 Findings See Below Lateral incision had a nishant size non-healing section with fibrinous tissue in proximal third and slightly more proximal another 2-3 mm nonhealing section, but not as deep. No kaleb purulence. There were areas of fat that did not appear health and were easily removed with curette. Blunt dissection was carried down to the fascia. The Fascia was incised for less than 5 mm and no fluid of any kind was able to be expressed. Medial incision was opened and there appeared to be some purulent drainage centrally in the fat layer. Again the fascia was intact. There was no visible hardware. Fluids 1300 cc Specimens C&S LLE (Medial and lateral wounds) LLE soft tissue to pathology Anesthesia Type General Complications none Indications The patient had an open and draining wound from there lateral incision, roughly 4 weeks s/p ORIF left Tibial plateau, since 11/05/21 that appears infected now. The patient refused to go over the risks of surgery. The patient was very contentious and also refused to discuss her options. The patient however elected to proceed with surgery and the informed consent was signed. Description of Procedure Geovanny Blanco PA-C is assisting with positioning, retraction, and closure due to fellow not available. Procedure: The patient was taken to the Operating Room and placed in the supine position on the operating table. After general anesthetic was administered a multidisciplinary time-out was performed identifying my initials on the left limb as the correct and operative limb. Antibiotics were held until cultures were obtained and her current regime was continued. The left leg was prepped and draped in the usual Orthopaedic sterile fashion. The patient's previous medial and lateral incisions along were marked as well as elliptical excision of the 2 open lesions along the lateral incision. The skin edges were injected with a 50:50 mixture of 1% lidocaine and 0.5 % Marcaine with epi for a total of 20cc. The lateral incision was preformed first and the 2 skin lesions were ellipsed and excised with a scalpel. Blunt finger dissection was carried down to the fascia which was intact. There was no visible hardware. There was no kaleb purulence. Culture was obtained. The non-viable skin, and concerning soft tissue was removed with a combination of sharp dissection with the scalpel, curette, Versajet, and rongeur. The small stab incision in the fascia was created and an no fluid of any kind was able to be expressed. The wound was copiously irrigated with 3 L normal saline. Following irrigation and debridement there was healthy viable bleeding skin and fat. The medial incision was preformed next and centrally while still in the fat layer a small amount of purulent drainage was encounter. Cultures were obtained. Blunt finger dissection was carried down to the fascia, approximately 7 cm in de pth,which was intact. There was no visible hardware. Again any concerning soft tissue was removed with a combination of curette, Versajet, and rongeur. The wound was copiously irrigated with 3 L normal saline as well. Following irrigation and debridement there was healthy viable bleeding skin and fat. The skin were closed with 0 & 2-0 Prolene using Verticle and horizontal mattress sutures respectively. The wound was covered Xeroform, 4 x 4's, ABDs, sterile cast padding, and an ALIE. The sponge and needle counts were correct. POST-OP: Patient will be re-admitted to medicine and continued on IV antibiotics until seen by infectious disease. Continue NWB. Resume diet. Continue pain control. RICE. I attest to the content of the Intraoperative Record and any orders documented therein. Any exceptions are noted below.
--- NOTE | 2021-11-09 17:06 | Operative Report ---
Post Operative Report Pre & Post Diagnosis Operation Date: 11/09/21 12:00 Pre-Op Diagnosis: left lower leg infection Post-Op Diagnosis: left lower leg infection and non-healing wound I identified the patient and participated in the time-out.: Yes Procedure Operation Date: 11/09/21 12:00 Actual Procedures p Left Leg Incision and Drainage - Devin Rodriguez MD Surgeon Dr Devin Rodriguez Head Of Transport Logistics Geovanny Blanco PA-C (No fellow avail) Estimated Blood Loss 75 Findings Consistent with Post-Op Diagnosis Specimens wound culture left leg lateral wound culture left leg medial soft tissue sample left leg medial soft tissue sample left [place] lateral Description of Procedure Pt was taken to operating room, placed under general anesthesia. Pt was already on IV antibiotics. Prepped and draped in sterile fashion. I was present during the entire case and assisted with positioning, instrumentation, closure and dressings. Please see Dr. Rodriguez's op report for further detail. Pt was awake and transferred to PACU in stable condition I attest to the content of the Intraoperative Record and any orders documented therein. Any exceptions are noted below.
[2021-11-09] MEDS: fentaNYL citrate 100 MCG/2 ML VIAL IV PRN ×4 (17:13→17:29)
[2021-11-09 17:21] LABS: BUN Creatinine Ratio 21.1 (10-20); Creatinine Clr Calc Pharmacy 174.7 ml/min; Est GFR (Non-African American) 104.4 ml/min; Magnesium 1.7 mg/dl (1.7-2.4); Potassium 4.3 mmol/L (3.5-5.1)
[2021-11-09] MEDS: HYDROmorphone INJ 1 MG/ML SYRINGE IV PRN ×2 (17:50→17:55)
--- NOTE | 2021-11-09 18:29 | Anesthesiology Progress Note ---
Date of Service November 09, 2021 Anesthesia Post Procedure Vital Signs Vital Signs: Temp Pulse Pulse Resp BP Pulse Ox 11/09/21 18:20 95 H 20 97 11/09/21 18:00 96 H 24 98 11/09/21 17:50 97 H 24 147/89 H 100 11/09/21 17:40 100 H 13 149/89 H 96 11/09/21 17:30 91 H 16 136/85 95 11/09/21 17:20 88 25 H 138/95 98 11/09/21 17:12 36.2 C L 95 H 22 134/92 99 11/09/21 13:42 36.9 C 84 20 96 11/09/21 07:57 36.6 C 90 18 129/83 93 11/09/21 00:07 36.5 C 90 24 136/81 95 11/08/21 22:35 82 20 107/74 95 11/08/21 21:12 81 20 134/62 96 11/08/21 19:25 79 22 126/81 95 Pain Intensity Left Leg: Pain Intensity: 10 Transfer of Care Handoff Completed per policy Notes Mental Status: alert / awake / arousable Patient Amnestic to Procedure: Yes Nausea / Vomiting: adequately controlled Pain: adequately controlled Airway Patency, RR, SpO2: stable & adequate BP & HR: stable & adequate Hydration State: stable & adequate Anesthetic Complications: no major complications apparent
--- NOTE | 2021-11-09 21:18 | Anesthesiology Progress Note ---
Date of Service November 09, 2021 Anesthesia Post Procedure Vital Signs Vital Signs: Temp Pulse Pulse Resp BP Pulse Ox 11/09/21 20:23 97.7 F 92 H 22 141/86 H 94 11/09/21 19:00 93 H 20 93 11/09/21 18:50 88 20 94 11/09/21 18:40 91 H 20 95 11/09/21 18:30 89 20 95 11/09/21 18:20 95 H 20 97 11/09/21 18:00 96 H 24 98 11/09/21 17:50 97 H 24 147/89 H 100 11/09/21 17:40 100 H 13 149/89 H 96 11/09/21 17:30 91 H 16 136/85 95 11/09/21 17:20 88 25 H 138/95 98 11/09/21 17:12 97.2 F L 95 H 22 134/92 99 11/09/21 13:42 98.4 F 84 20 96 11/09/21 07:57 97.9 F 90 18 129/83 93 11/09/21 00:07 97.7 F 90 24 136/81 95 11/08/21 22:35 82 20 107/74 95 Pain Intensity Left Leg: Pain Intensity: 10 Transfer of Care Handoff Completed per policy Notes Mental Status: alert / awake / arousable and participated in evaluation Patient Amnestic to Procedure: Yes Nausea / Vomiting: adequately controlled Pain: adequately controlled Airway Patency, RR, SpO2: stable & adequate BP & HR: stable & adequate Hydration State: stable & adequate Anesthetic Complications: no major complications apparent and Pt Satisfied with anesthetic care
[2021-11-09 21:23] LABS: Basophils # (auto) 0.03 K/uL (0-0.2); Basophils % (auto) 0.4 %; Eosinophils # (auto) 0.01 K/uL (0-0.5); Eosinophils % (auto) 0.1 %; Hematocrit (blood only) 38.4 % (37-47); Immature Granulocytes # (auto) 0.06 K/uL (0.00-0.02); Immature Granulocytes % (auto) 0.8 %; Lymphocytes # (auto) 0.81 K/uL (1.2-3.4); Lymphocytes % (auto) 10.8 %; Mean Corpuscular Hemoglobin 27.5 pg (25-34); Mean Corpuscular Hgb Conc 31.3 g/dL (32-36); Mean Corpuscular Volume 87.9 fL (80-100); Mean Platelet Volume 8.8 fL (7.4-10.4); Monocytes # (auto) 0.17 K/uL (0.11-0.59); Monocytes % (auto) 2.3 %; Neutrophils # (auto) 6.41 K/uL (1.4-6.5); Neutrophils % (auto) 85.6 %; Platelet Count 326 K/uL (130-400); RDW Coefficient of Variation 15.5 % (11.5-14.5); RDW Standard Deviation 50.2 fL (36.4-46.3); Red Blood Count 4.37 M/uL (4.2-5.4); White Blood Count 7.49 K/uL (4.8-10.8)
[2021-11-09] MEDS: GABAPENTIN 300 MG CAP PO SCH (21:59)
[2021-11-09] MEDS: METOPROLOL SUCC 25MG EXT REL TAB PO SCH (22:01)
[2021-11-10] MEDS: SODIUM CHLORIDE 0.9% 1000ML 1,000 ML IV SCH ×2 (06:05→18:39)
[2021-11-10] MEDS: PIPERACILLIN/TAZOBACTAM 4.5 GM in DEXTROSE 5% 100 ML IV SCH ×3 (06:06→22:20)
[2021-11-10 08:04] LABS: Estimated Average Glucose 114 mg/dl; Hemoglobin A1C 5.6 % (4.5-5.6)
[2021-11-10] MEDS: GABAPENTIN 300 MG CAP PO SCH ×3 (08:22→20:13)
[2021-11-10] MEDS: PANTOprazole 40 MG TAB PO SCH (08:22)
[2021-11-10] MEDS: INSULIN ASPART PER UNIT SC SCH ×4 (08:40→20:22)
--- NOTE | 2021-11-10 09:38 | Orthopedic Progress Note ---
Date of Service November 10, 2021 Assessment & Plan (1) Deep incisional surgical site infection: Plan: Postop day 1-status post incision and drainage left postoperative knee wounds with Dr. Rodriguez on November 09, 2021. She may be out of bed, nonweightbearing left lower extremity with the assistance of a walker or crutches. She can do gentle range of motion of her left knee as tolerated. Keep the incision covered. Keep postoperative dressings in place. We will plan for dressing change tomorrow on postoperative day 2. She continues to have burning in her left lower extremity. Unsure of the explanation for this. Could have some burning from the Betadine used intraope ratively yesterday or due to placement of tourniquet, which was not inflated. Will continue to monitor. Could try some Lidoderm patches. Gabapentin was also started yesterday. PT and OT consults as ordered. ID consult pending. Her intraoperative cultures are negative and currently pending. The cultures performed on November 08, 2021 are growing out gram-negative bacilli. Blood cultures are also negative x24 hours. Continue IV vancomycin and Zosyn as ordered. Regular diet. Will re-eval in the am tomorrow and plan for dressing change. Would also consider possible Psych eval while in the hospital. She was very anxious yesterday but more withdrawn but less belligerent today. She seems to understand the plan. Present on Admission?: Yes Admission and Anticipated Discharge Date Admission Date: November 08, 2021 Supervising Physician Co-Signing Physician Notes I, Dr. Rodriguez, saw and examined the patient with my PA and agree with the above findings and plan of care we discussed. Subjective Patient resting in bed. Appears comfortable but still complaining of burning in her left leg from her hip down to her ankle. She states she has pain everywhere. Not one place hurts more than the other. She is laying on her right side. Her breakfast is at her bedside and she does not want to eat. She answers us today with one-word answers and is on her phone. Physical Exam Musculoskeletal: Patient seen and evaluated today by Dr. Rodriguez and myself. Her left lower leg postoperative dressings are slightly falling off her foot. They are otherwise clean, dry and intact. We did rewrap the Dax and secured it in place, leaving the foot free. She has some mild edema into her left foot. She is able to wiggle her toes and move her ankle. Her strength is 5/5. Distal sensation is normal. She is able to actually lift her leg on her own as well. Dressings were kept in place today. Results & Data ([facility]) Vital Signs (Past 12 Hours) Vital Signs Temp Pulse Resp BP Pulse Ox 11/10/21 08:24 37.1 C 106 H 20 142/84 H 92 11/10/21 02:06 37.2 C 92 H 20 142/73 H 92 11/09/21 22:02 36.8 C 100 H 18 113/80 92 Laboratory Results 11/10/21 11/09/21 11/09/21 Range/Units 08:21 21:00 16:15 WBC 7.49 RBC 4.37 Hgb 12.0 Hct 38.4 MCV 87.9 MCH 27.5 MCHC 31.3 L RDW Std Deviation 50.2 H RDW Coeff of Italo 15.5 H Plt Count 326 MPV 8.8 Immature Gran % (Auto) 0.8 Neut % (Auto) 85.6 Lymph % (Auto) 10.8 [place] % (Auto) 2.3 Eos % (Auto) 0.1 Baso % (Auto) 0.4 Neut # (Auto) 6.41 Lymph # (Auto) 0.81 L [place] # (Auto) 0.17 Eos # (Auto) 0.01 Baso # (Auto) 0.03 Immature Gran # (Auto) 0.06 H Absolute Nucleated RBC Nucleated RBC % (auto) Neutrophils % (Manual) Band Neutrophils % Lymphocytes % (Manual) Prolymphocyte % Reactive Lymphs % (Man) Monocytes % (Manual) Eosinophils % (Manual) Basophils % (Manual) Metamyelocytes % (Man) Myelocytes % (Man) Promyelocytes % (Man) Blast Cells % (Manual) Plasma Cell % (Manual) Other Cells % Nucleated RBC % Neutrophils # (Manual) Band Neutrophils # Total Absolute Neuts Lymphocytes # (Manual) Prolymphocyte # Reactive Lymphs # Total Abs Lymphocytes Monocytes # (Manual) Eosinophils # (Manual) Basophils # (Manual) Metamyelocytes # (Man) Myelocytes # (Manual) Promyelocytes # (Man) Blast Cells # (Man) Plasma Cell # (Manual) Other Cells # Nucleated RBCs # (Man) Hypersegmented Neuts Hyposegmented Neuts Hypogranular Neuts Large Granular Lymphs # Lrg Granular Lymphs Hairy Cells Smudge Cells Toxic Granulation Toxic Vacuolation Dohle Bodies Tello Rods Platelet Estimate Hypogranular Platelets Clumped Platelets Giant Platelets Platelet Satelliting RBC Morphology Polychromasia Hypochromasia Poikilocytosis Basophilic Stippling Anisocytosis Microcytosis Macrocytosis Spherocytes Pappenheimer Bodies Sickle Cells Target Cells Tear Drop Cells Ovalocytes Stomatocytes [place] Bodies Echinocytes Acanthocytes (Spur) Rouleaux RBC Agglutinates Schistocytes Sezary Cell APTT (21.0-31.0) Seconds PTT Ratio Sodium 135 L (136-145) mmol/L Potassium 4.3 (3.5-5.1) mmol/L Chloride 104 (98-107) mmol/L Carbon Dioxide 23 (21-32) mmol/L Anion Gap 8 (3-11) BUN 12 (6-23) mg/dl Creatinine 0.57 L (0.6-1.2) mg/dl Est Cr Clr Drug Dosing 174.7 ml/min Est GFR ( Amer) 121.0 ml/min Est GFR (Non-Af Amer) 104.4 ml/min BUN/Creatinine Ratio 21.1 H (10-20) Glucose 150 H (70-99(Fasting)) mg/dl POC Glucose 122 H (70-99) mg/dl Estimat Average Glucose mg/dl Hemoglobin A1c (4.5-5.6) % Calcium 10.0 (8.5-10.1) mg/dl Magnesium 1.7 (1.7-2.4) mg/dl Hepatitis C Ab (EIA) Hep C Ab Signal/Cutoff 11/09/21 11/09/21 11/09/21 Range/Units 16:15 12:00 08:15 WBC Cancelled RBC Cancelled Hgb Cancelled Hct Cancelled MCV Cancelled MCH Cancelled MCHC Cancelled RDW Std Deviation Cancelled RDW Coeff of [place] Cancelled Plt Count Cancelled MPV Cancelled Immature Gran % (Auto) Cancelled Neut % (Auto) Cancelled Lymph % (Auto) Cancelled [place] % (Auto) Cancelled Eos % (Auto) Cancelled Baso % (Auto) Cancelled Neut # (Auto) Cancelled Lymph # (Auto) Cancelled [place] # (Auto) Cancelled Eos # (Auto) Cancelled Baso # (Auto) Cancelled Immature Gran # (Auto) Cancelled Absolute Nucleated RBC Cancelled Nucleated RBC % (auto) Cancelled Neutrophils % (Manual) Cancelled Band Neutrophils % Cancelled Lymphocytes % (Manual) Cancelled Prolymphocyte % Cancelled Reactive Lymphs % (Man) Cancelled Monocytes % (Manual) Cancelled Eosinophils % (Manual) Cancelled Basophils % (Manual) Cancelled Metamyelocytes % (Man) Cancelled Myelocytes % (Man) Cancelled Promyelocytes % (Man) Cancelled Blast Cells % (Manual) Cancelled Plasma Cell % (Manual) Cancelled Other Cells % Cancelled Nucleated RBC % Cancelled Neutrophils # (Manual) Cancelled Band Neutrophils # Cancelled Total Absolute Neuts Cancelled Lymphocytes # (Manual) Cancelled Prolymphocyte # Cancelled Reactive Lymphs # Cancelled Total Abs Lymphocytes Cancelled Monocytes # (Manual) Cancelled Eosinophils # (Manual) Cancelled Basophils # (Manual) Cancelled Metamyelocytes # (Man) Cancelled Myelocytes # (Manual) Cancelled Promyelocytes # (Man) Cancelled Blast Cells # (Man) Cancelled Plasma Cell # (Manual) Cancelled Other Cells # Cancelled Nucleated RBCs # (Man) Cancelled Hypersegmented Neuts Cancelled Hyposegmented Neuts Cancelled Hypogranular Neuts Cancelled Large Granular Lymphs Cancelled # Lrg Granular Lymphs Cancelled Hairy Cells Cancelled Smudge Cells Cancelled Toxic Granulation Cancelled Toxic Vacuolation Cancelled Dohle Bodies Cancelled Tello Rods Cancelled Platelet Estimate Cancelled Hypogranular Platelets Cancelled Clumped Platelets Cancelled Giant Platelets Cancelled Platelet Satelliting Cancelled RBC Morphology Cancelled Polychromasia Cancelled Hypochromasia Cancelled Poikilocytosis Cancelled Basophilic Stippling Cancelled Anisocytosis Cancelled Microcytosis Cancelled Macrocytosis Cancelled Spherocytes Cancelled Pappenheimer Bodies Cancelled Sickle Cells Cancelled Target Cells Cancelled Tear Drop Cells Cancelled Ovalocytes Cancelled Stomatocytes Cancelled [place] Bodies Cancelled Echinocytes Cancelled Acanthocytes (Spur) Cancelled Rouleaux Cancelled RBC Agglutinates Cancelled Schistocytes Cancelled Sezary Cell Cancelled APTT 25.4 (21.0-31.0) Seconds PTT Ratio 0.9 Sodium (136-145) mmol/L Potassium (3.5-5.1) mmol/L Chloride (98-107) mmol/L Carbon Dioxide (21-32) mmol/L Anion Gap (3-11) BUN (6-23) mg/dl Creatinine (0.6-1.2) mg/dl Est Cr Clr Drug Dosing ml/min Est GFR ( Amer) ml/min Est GFR (Non-Af Amer) ml/min BUN/Creatinine Ratio (10-20) Glucose (70-99(Fasting)) mg/dl POC Glucose 111 H (70-99) mg/dl Estimat Average Glucose mg/dl Hemoglobin A1c (4.5-5.6) % Calcium (8.5-10.1) mg/dl Magnesium (1.7-2.4) mg/dl Hepatitis C Ab (EIA) Hep C Ab Signal/Cutoff 11/09/21 11/08/21 Range/Units 01:57 19:25 WBC RBC Hgb Hct MCV MCH MCHC RDW Std Deviation RDW Coeff of [place] Plt Count MPV Immature Gran % (Auto) Neut % (Auto) Lymph % (Auto) [place] % (Auto) Eos % (Auto) Baso % (Auto) Neut # (Auto) Lymph # (Auto) [place] # (Auto) Eos # (Auto) Baso # (Auto) Immature Gran # (Auto) Absolute Nucleated RBC Nucleated RBC % (auto) Neutrophils % (Manual) Band Neutrophils % Lymphocytes % (Manual) Prolymphocyte % Reactive Lymphs % (Man) Monocytes % (Manual) Eosinophils % (Manual) Basophils % (Manual) Metamyelocytes % (Man) Myelocytes % (Man) Promyelocytes % (Man) Blast Cells % (Manual) Plasma Cell % (Manual) Other Cells % Nucleated RBC % Neutrophils # (Manual) Band Neutrophils # Total Absolute Neuts Lymphocytes # (Manual) Prolymphocyte # Reactive Lymphs # Total Abs Lymphocytes Monocytes # (Manual) Eosinophils # (Manual) Basophils # (Manual) Metamyelocytes # (Man) Myelocytes # (Manual) Promyelocytes # (Man) Blast Cells # (Man) Plasma Cell # (Manual) Other Cells # Nucleated RBCs # (Man) Hypersegmented Neuts Hyposegmented Neuts Hypogranular Neuts Large Granular Lymphs # Lrg Granular Lymphs Hairy Cells Smudge Cells Toxic Granulation Toxic Vacuolation Dohle Bodies Tello Rods Platelet Estimate Hypogranular Platelets Clumped Platelets Giant Platelets Platelet Satelliting RBC Morphology Polychromasia Hypochromasia Poikilocytosis Basophilic Stippling Anisocytosis Microcytosis Macrocytosis Spherocytes Pappenheimer Bodies Sickle Cells Target Cells Tear Drop Cells Ovalocytes Stomatocytes [place] Bodies Echinocytes Acanthocytes (Spur) Rouleaux RBC Agglutinates Schistocytes Sezary Cell APTT (21.0-31.0) Seconds PTT Ratio Sodium (136-145) mmol/L Potassium (3.5-5.1) mmol/L Chloride (98-107) mmol/L Carbon Dioxide (21-32) mmol/L Anion Gap (3-11) BUN (6-23) mg/dl Creatinine (0.6-1.2) mg/dl Est Cr Clr Drug Dosing ml/min Est GFR ( Amer) ml/min Est GFR (Non-Af Amer) ml/min BUN/Creatinine Ratio (10-20) Glucose (70-99(Fasting)) mg/dl POC Glucose (70-99) mg/dl Estimat Average Glucose 114 mg/dl Hemoglobin A1c 5.6 (4.5-5.6) % Calcium (8.5-10.1) mg/dl Magnesium (1.7-2.4) mg/dl Hepatitis C Ab (EIA) Pending Hep C Ab Signal/Cutoff Pending
[2021-11-10] MEDS ORDERED: MAGNESIUM SULFATE / D5W 1 GM/100 ML BAG IV ONE (11:54)
--- NOTE | 2021-11-10 11:55 | Hospitalist Progress Note ---
Date of Service November 10, 2021 Assessment & Plan (1) Acute deep vein thrombosis (DVT) of left lower extremity: (2) Deep incisional surgical site infection: Plan: 56 yo F w/ morbid obesity, history of sleep apnea, but not using CPAP because since she moved from [place] 3 years ago, she lost her CPAP and not using it, history of hypertension, GERD, history of prediabetes presented 11/08 to our ED w/ Left lower extremity infection. 1. Infected left tibia-fibula surgical site. The patient fell on 09/29/2021, had surgery on 09/30/2021 at [place]. Was in detention for 2 weeks, discharged on 10/22/2021. --> her daughter drove her back 10/23/2021 to [place] from [place]. She was in the car for 28 hours. Patient was having some drainage at surgical site, was prescribed Keflex by PCP about a week ago [employer] to complete 7 days course, not getting better hence presented to the ED, admitting x-ray shows possible cellulitis. Follow-up admitting blood culture and wound culture. So far superficial culture, positive for E. coli and staph. Culture from OR pending. Continue with Dapto and Zosyn. ID was consulted, however patient refused to talk to them. I discussed with ID, if culture unchanged, patient could be discharged on p.o. Cipro and Doxy -as there was no hardware or bone involvement. Orthopedics consulted, pt is s/p I&D (11/09/21). Resume heparin drip when cleared by orthopedics. 2. Nonocclusive left common femoral deep venous thrombosis: Patient had recent long drive/immobility and orthopedic surgery. On IV heparin drip, continue once cleared by orthopedics after I&D. Will likely need oral anticoagulation upon discharge. 3. Other chronic medical conditions: Prediabetes, HTN, GERD, morbid obesity Resume/continue with home meds as and when appropriate. Insulin sliding scale. DVT prophylaxis: Resume IV heparin drip when cleared by orthopedics. Admission and Anticipated Discharge Date Admission Date: November 08, 2021 Subjective Patient seen in follow-up of infected left tibia-fibula surgical site and nonocclusive left common femoral DVT. Patient is lying in bed, on room air, in NAD. Per RN, patient refused medications this morning, refused IV heparin as well. She also refused ID consult. Patient was able to talk to me briefly, and said that it was okay to talk to her daughter. Per daughter, patient is upset due to health issues she had in [place]. Patient reports leg pain, otherwise denies shortness of breath, chest pain, fevers chills, abd. pain, nausea vomiting, diarrhea. Review of Systems Review of Systems: All systems reviewed & are unremarkable except as noted in Subjective Physical Exam Physical Exam: GENERAL: morbidly obese F, not in acute distress. HEENT: NC/AT. EOMI. Pupils equal, round and reactive to light. Oral mucosa, absent teeth and moist. NECK: No JVD, no neck masses. CARDIOVASCULAR: S1 and S2 heard. Regular rate and rhythm. No murmur, no gallop. RESPIRATORY SYSTEM: Normal AP diameter. No accessory muscle use. No wheezing, no crackles. ABDOMEN: Soft. Bowel sounds are present, nontender, no distention. NEURO: Alert and oriented. Speech is clear. No facial droop. Obeys simple commands.Moves extremities. EXTREMITIES:on admission - Left tibia-fibula surgical site w/ deep open wound and drainage seen. Some erythematous changes seen. Some swelling seen. Now s/p I&D, surgical dressings on left lower extremity applied. Results & Data Results & Data ([facility]) Vital Signs (Past 12 Hours) Vital Signs Temp Pulse Resp BP Pulse Ox 11/10/21 08:24 37.1 C 106 H 20 142/84 H 92 11/10/21 02:06 37.2 C 92 H 20 142/73 H 92 Laboratory Results 11/10/21 11/09/21 11/09/21 Range/Units 08:21 21:00 16:15 WBC 7.49 RBC 4.37 Hgb 12.0 Hct 38.4 MCV 87.9 MCH 27.5 MCHC 31.3 L RDW Std Deviation 50.2 H RDW Coeff of Italo 15.5 H Plt Count 326 MPV 8.8 Immature Gran % (Auto) 0.8 Neut % (Auto) 85.6 Lymph % (Auto) 10.8 Morrison % (Auto) 2.3 Eos % (Auto) 0.1 Baso % (Auto) 0.4 Neut # (Auto) 6.41 Lymph # (Auto) 0.81 L Morrison # (Auto) 0.17 Eos # (Auto) 0.01 Baso # (Auto) 0.03 Immature Gran # (Auto) 0.06 H Absolute Nucleated RBC Nucleated RBC % (auto) Neutrophils % (Manual) Band Neutrophils % Lymphocytes % (Manual) Prolymphocyte % Reactive Lymphs % (Man) Monocytes % (Manual) Eosinophils % (Manual) Basophils % (Manual) Metamyelocytes % (Man) Myelocytes % (Man) Promyelocytes % (Man) Blast Cells % (Manual) Plasma Cell % (Manual) Other Cells % Nucleated RBC % Neutrophils # (Manual) Band Neutrophils # Total Absolute Neuts Lymphocytes # (Manual) Prolymphocyte # Reactive Lymphs # Total Abs Lymphocytes Monocytes # (Manual) Eosinophils # (Manual) Basophils # (Manual) Metamyelocytes # (Man) Myelocytes # (Manual) Promyelocytes # (Man) Blast Cells # (Man) Plasma Cell # (Manual) Other Cells # Nucleated RBCs # (Man) Hypersegmented Neuts Hyposegmented Neuts Hypogranular Neuts Large Granular Lymphs # Lrg Granular Lymphs Hairy Cells Smudge Cells Toxic Granulation Toxic Vacuolation Dohle Bodies Tello Rods Platelet Estimate Hypogranular Platelets Clumped Platelets Giant Platelets Platelet Satelliting RBC Morphology Polychromasia Hypochromasia Poikilocytosis Basophilic Stippling Anisocytosis Microcytosis Macrocytosis Spherocytes Pappenheimer Bodies Sickle Cells Target Cells Tear Drop Cells Ovalocytes Stomatocytes [place] Bodies Echinocytes Acanthocytes (Spur) Rouleaux RBC Agglutinates Schistocytes Sezary Cell APTT (21.0-31.0) Seconds PTT Ratio Sodium 135 L (136-145) mmol/L Potassium 4.3 (3.5-5.1) mmol/L Chloride 104 (98-107) mmol/L Carbon Dioxide 23 (21-32) mmol/L Anion Gap 8 (3-11) BUN 12 (6-23) mg/dl Creatinine 0.57 L (0.6-1.2) mg/dl Est Cr Clr Drug Dosing 174.7 ml/min Est GFR ( Amer) 121.0 ml/min Est GFR (Non-Af Amer) 104.4 ml/min BUN/Creatinine Ratio 21.1 H (10-20) Glucose 150 H (70-99(Fasting)) mg/dl POC Glucose 122 H (70-99) mg/dl Estimat Average Glucose mg/dl Hemoglobin A1c (4.5-5.6) % Calcium 10.0 (8.5-10.1) mg/dl Magnesium 1.7 (1.7-2.4) mg/dl Hepatitis C Ab (EIA) Hep C Ab Signal/Cutoff 11/09/21 11/09/21 11/09/21 Range/Units 16:15 12:00 08:15 WBC Cancelled RBC Cancelled Hgb Cancelled Hct Cancelled MCV Cancelled MCH Cancelled MCHC Cancelled RDW Std Deviation Cancelled RDW Coeff of Italo Cancelled Plt Count Cancelled MPV Cancelled Immature Gran % (Auto) Cancelled Neut % (Auto) Cancelled Lymph % (Auto) Cancelled Morrison % (Auto) Cancelled Eos % (Auto) Cancelled Baso % (Auto) Cancelled Neut # (Auto) Cancelled Lymph # (Auto) Cancelled Morrison # (Auto) Cancelled Eos # (Auto) Cancelled Baso # (Auto) Cancelled Immature Gran # (Auto) Cancelled Absolute Nucleated RBC Cancelled Nucleated RBC % (auto) Cancelled Neutrophils % (Manual) Cancelled Band Neutrophils % Cancelled Lymphocytes % (Manual) Cancelled Prolymphocyte % Cancelled Reactive Lymphs % (Man) Cancelled Monocytes % (Manual) Cancelled Eosinophils % (Manual) Cancelled Basophils % (Manual) Cancelled Metamyelocytes % (Man) Cancelled Myelocytes % (Man) Cancelled Promyelocytes % (Man) Cancelled Blast Cells % (Manual) Cancelled Plasma Cell % (Manual) Cancelled Other Cells % Cancelled Nucleated RBC % Cancelled Neutrophils # (Manual) Cancelled Band Neutrophils # Cancelled Total Absolute Neuts Cancelled Lymphocytes # (Manual) Cancelled Prolymphocyte # Cancelled Reactive Lymphs # Cancelled Total Abs Lymphocytes Cancelled Monocytes # (Manual) Cancelled Eosinophils # (Manual) Cancelled Basophils # (Manual) Cancelled Metamyelocytes # (Man) Cancelled Myelocytes # (Manual) Cancelled Promyelocytes # (Man) Cancelled Blast Cells # (Man) Cancelled Plasma Cell # (Manual) Cancelled Other Cells # Cancelled Nucleated RBCs # (Man) Cancelled Hypersegmented Neuts Cancelled Hyposegmented Neuts Cancelled Hypogranular Neuts Cancelled Large Granular Lymphs Cancelled # Lrg Granular Lymphs Cancelled Hairy Cells Cancelled Smudge Cells Cancelled Toxic Granulation Cancelled Toxic Vacuolation Cancelled Dohle Bodies Cancelled Tello Rods Cancelled Platelet Estimate Cancelled Hypogranular Platelets Cancelled Clumped Platelets Cancelled Giant Platelets Cancelled Platelet Satelliting Cancelled RBC Morphology Cancelled Polychromasia Cancelled Hypochromasia Cancelled Poikilocytosis Cancelled Basophilic Stippling Cancelled Anisocytosis Cancelled Microcytosis Cancelled Macrocytosis Cancelled Spherocytes Cancelled Pappenheimer Bodies Cancelled Sickle Cells Cancelled Target Cells Cancelled Tear Drop Cells Cancelled Ovalocytes Cancelled Stomatocytes Cancelled [place] Bodies Cancelled Echinocytes Cancelled Acanthocytes (Spur) Cancelled Rouleaux Cancelled RBC Agglutinates Cancelled Schistocytes Cancelled Sezary Cell Cancelled APTT 25.4 (21.0-31.0) Seconds PTT Ratio 0.9 Sodium (136-145) mmol/L Potassium (3.5-5.1) mmol/L Chloride (98-107) mmol/L Carbon Dioxide (21-32) mmol/L Anion Gap (3-11) BUN (6-23) mg/dl Creatinine (0.6-1.2) mg/dl Est Cr Clr Drug Dosing ml/min Est GFR ( Amer) ml/min Est GFR (Non-Af Amer) ml/min BUN/Creatinine Ratio (10-20) Glucose (70-99(Fasting)) mg/dl POC Glucose 111 H (70-99) mg/dl Estimat Average Glucose mg/dl Hemoglobin A1c (4.5-5.6) % Calcium (8.5-10.1) mg/dl Magnesium (1.7-2.4) mg/dl Hepatitis C Ab (EIA) Hep C Ab Signal/Cutoff 11/09/21 11/08/21 Range/Units 01:57 19:25 WBC RBC Hgb Hct MCV MCH MCHC RDW Std Deviation RDW Coeff of Italo Plt Count MPV Immature Gran % (Auto) Neut % (Auto) Lymph % (Auto) Morrison % (Auto) Eos % (Auto) Baso % (Auto) Neut # (Auto) Lymph # (Auto) Morrison # (Auto) Eos # (Auto) Baso # (Auto) Immature Gran # (Auto) Absolute Nucleated RBC Nucleated RBC % (auto) Neutrophils % (Manual) Band Neutrophils % Lymphocytes % (Manual) Prolymphocyte % Reactive Lymphs % (Man) Monocytes % (Manual) Eosinophils % (Manual) Basophils % (Manual) Metamyelocytes % (Man) Myelocytes % (Man) Promyelocytes % (Man) Blast Cells % (Manual) Plasma Cell % (Manual) Other Cells % Nucleated RBC % Neutrophils # (Manual) Band Neutrophils # Total Absolute Neuts Lymphocytes # (Manual) Prolymphocyte # Reactive Lymphs # Total Abs Lymphocytes Monocytes # (Manual) Eosinophils # (Manual) Basophils # (Manual) Metamyelocytes # (Man) Myelocytes # (Manual) Promyelocytes # (Man) Blast Cells # (Man) Plasma Cell # (Manual) Other Cells # Nucleated RBCs # (Man) Hypersegmented Neuts Hyposegmented Neuts Hypogranular Neuts Large Granular Lymphs # Lrg Granular Lymphs Hairy Cells Smudge Cells Toxic Granulation Toxic Vacuolation Dohle Bodies Tello Rods Platelet Estimate Hypogranular Platelets Clumped Platelets Giant Platelets Platelet Satelliting RBC Morphology Polychromasia Hypochromasia Poikilocytosis Basophilic Stippling Anisocytosis Microcytosis Macrocytosis Spherocytes Pappenheimer Bodies Sickle Cells Target Cells Tear Drop Cells Ovalocytes Stomatocytes [place] Bodies Echinocytes Acanthocytes (Spur) Rouleaux RBC Agglutinates Schistocytes Sezary Cell APTT (21.0-31.0) Seconds PTT Ratio Sodium (136-145) mmol/L Potassium (3.5-5.1) mmol/L Chloride (98-107) mmol/L Carbon Dioxide (21-32) mmol/L Anion Gap (3-11) BUN (6-23) mg/dl Creatinine (0.6-1.2) mg/dl Est Cr Clr Drug Dosing ml/min Est GFR ( Amer) ml/min Est GFR (Non-Af Amer) ml/min BUN/Creatinine Ratio (10-20) Glucose (70-99(Fasting)) mg/dl POC Glucose (70-99) mg/dl Estimat Average Glucose 114 mg/dl Hemoglobin A1c 5.6 (4.5-5.6) % Calcium (8.5-10.1) mg/dl Magnesium (1.7-2.4) mg/dl Hepatitis C Ab (EIA) Pending Hep C Ab Signal/Cutoff Pending Medications Administered Current Inpatient Medications Acetaminophen (Acetaminophen 325 Mg Tab) 650 mg PO Q4H PRN PRN Reason: pain/fever Stop: 12/09/21 00:00 Dextrose (Dextrose 50% 50 Ml Syringe) 25 - 50 ml IV UD PRN; Protocol PRN Reason: Hypoglycemia Protocol Stop: 12/09/21 00:44 Gabapentin (Gabapentin 300 Mg Cap) 300 mg PO TID RAD[facility] Stop: 11/26/21 20:59 Last Admin: 11/10/21 12:56 Dose: Not Given Documented by: Glucagon (Glucagon For Inj 1 Mg Vial) 1 mg IM UD PRN; Protocol PRN Reason: Hypoglycemia Protocol Stop: 12/09/21 00:44 Glucose (Glucose 40% Gel 15 Gm Tube) 15 - 30 gm PO UD PRN; Protocol PRN Reason: Hypoglycemia Protocol Stop: 12/09/21 00:44 Glucose (Glucose 10 Tabs/Tube) 4 - 8 tabs PO UD PRN; Protocol PRN Reason: Hypoglycemia Protocol Stop: 12/09/21 00:44 Heparin Sodium/Dextrose (Heparin Sodium/Dextrose) 25,000 units in 500 mls @ 0 mls/hr IV .Q0M RADHA; Protocol Stop: 12/09/21 00:00 Last Titration: 11/09/21 11:33 Dose: 0 units/hr, 0 mls/hr Documented by: Sodium Chloride (Nss 1000ml) 1,000 mls @ 75 mls/hr IV .[id number] [facility] Stop: 12/09/21 00:00 Last Admin: 11/10/21 06:05 Dose: 75 mls/hr Documented by: Piperacillin Sod/Tazobactam (Sod 4.5 gm/ Dextrose) 120 mls @ 30 mls/hr IV Q8H RADHA; Protocol Stop: 11/16/21 05:59 Last Admin: 11/10/21 14:14 Dose: 30 mls/hr Documented by: Daptomycin 600 mg/ Syringe 12 mls @ 6 mls/min IV Q24H [facility]HA; Protocol Stop: 11/16/21 11:59 Last Admin: 11/10/21 12:11 Dose: 6 mls/min Documented by: Insulin Aspart (Insulin Aspart Per Unit) 0 units SC ACHS [facility] Stop: 12/09/21 07:29 Last Admin: 11/10/21 12:55 Dose: Not Given Documented by: Metoprolol Succinate (Metoprolol Succ 25mg Ext Rel Tab) 25 mg PO QPM [facility] Stop: 12/09/21 20:59 Last Admin: 11/09/21 22:01 Dose: 25 mg Documented by: Miscellaneous (Carbohydrates For Hypoglycemia ) 15 - 30 gm PO UD PRN PRN Reason: Hypoglycemia Treatment Stop: 12/09/21 00:44 Morphine Sulfate (Morphine Sulfate 4 Mg/Ml 1 Ml Carp\Vial) 3 mg IV Q3H PRN PRN Reason: Pain Stop: 11/24/21 14:07 Ondansetron HCl (Ondansetron Inj 2 Mg/Ml 2 Ml Vial) 4 mg IV Q6H PRN PRN Reason: Nausea Stop: 12/09/21 00:00 Ondansetron HCl (Ondansetron 4 Mg Od Tab) 4 mg PO TID PRN PRN Reason: Nausea And Vomiting Stop: 12/09/21 00:35 Oxycodone HCl (Oxycodone Hcl Ir 5 Mg Tab (Immediate Release)) 2.5 - 5 mg PO TID PRN PRN Reason: Pain Stop: 11/23/21 00:00 Last Admin: 11/09/21 07:36 Dose: 5 mg Documented by: Oxycodone HCl (Oxycodone Hcl Ir 5 Mg Tab (Immediate Release)) 10 mg PO Q8H PRN PRN Reason: Pain 6-10 Stop: 11/24/21 14:06 Pantoprazole Sodium (Pantoprazole 40 Mg Tab) 40 mg PO DAILY [facility] Stop: 12/09/21 08:59 Last Admin: 11/10/21 08:22 Dose: Not Given Documented by: Polyethylene Glycol (Polyethylene (Miralax) 17 Gm Pack) 17 gm PO DAILY PRN PRN Reason: Constipation Stop: 12/09/21 00:00 (1) Acute deep vein thrombosis (DVT) of left lower extremity Affected thrombotic vein of extremity: femoral Qualified Code(s): I82.412 - Acute embolism and thrombosis of left femoral vein
[2021-11-10] MEDS: DAPTOmycin 600 MG in SYRINGE 0 ML IV SCH (12:11)
[2021-11-10] MEDS ORDERED: MoRPHine SULFATE 4 MG/ML 1 ML CARP\\VIAL IV PRN (14:08)
[2021-11-10 17:18] LABS: Hematocrit (blood only) 36.6 % (37-47); Hemoglobin 11.6 g/dL (12.0-16.0); Mean Corpuscular Hgb Conc 31.7 g/dL (32-36); Mean Corpuscular Volume 88.2 fL (80-100); Mean Platelet Volume 8.7 fL (7.4-10.4); Platelet Count 413 K/uL (130-400); RDW Coefficient of Variation 15.8 % (11.5-14.5); Red Blood Count 4.15 M/uL (4.2-5.4); White Blood Count 7.53 K/uL (4.8-10.8)
[2021-11-10 17:21] LABS: Partial Thromboplastin Ratio 0.8; Partial Thromboplastin Time 23.1 Seconds (21.0-31.0)
[2021-11-10] MEDS: oxyCODONE HCL IR 5 MG TAB (IMMEDIATE RELEASE) PO PRN (17:31)
[2021-11-10 17:35] LABS: BUN Creatinine Ratio 15.8 (10-20); Calcium 10.5 mg/dl (8.5-10.1); Creatinine Clr Calc Pharmacy 174.7 ml/min; Est GFR (Non-African American) 104.4 ml/min; Phosphorus 3.3 mg/dl (2.5-4.9); Potassium 3.8 mmol/L (3.5-5.1)
[2021-11-10] MEDS ORDERED: HEPARIN SODIUM/DEXTROSE 25,000 UNITS/500 ML BAG IV SCH (17:45)
[2021-11-10] MEDS: APIXABAN 5 MG TABLET PO SCH (20:13)
[2021-11-10] MEDS: METOPROLOL SUCC 25MG EXT REL TAB PO SCH (20:16)
[2021-11-11] MEDS: oxyCODONE HCL IR 5 MG TAB (IMMEDIATE RELEASE) PO PRN ×3 (02:40→20:00)
[2021-11-11] MEDS: PIPERACILLIN/TAZOBACTAM 4.5 GM in DEXTROSE 5% 100 ML IV SCH ×3 (05:44→21:44)
[2021-11-11] MEDS: SODIUM CHLORIDE 0.9% 1000ML 1,000 ML IV SCH ×2 (07:56→20:00)
[2021-11-11] MEDS: INSULIN ASPART PER UNIT SC SCH ×4 (08:59→20:48)
--- NOTE | 2021-11-11 09:04 | Psychiatric Consultation ---
Date of Consultation November 11, 2021 Impression / Recommendations Impression 56 yo female, coping may be limited by intellectual capabilities, presents with irritability around hospitalization/wound care s/p several weeks of treatment out of state. (1) Adjustment disorder: Consult is somewhat limited but there does not appear to be any psychosis or renita interfering with her medical decision making. Premedicate with Ativan for blood draws if able as this is her main complaint. She does not want any follow up from out service. Psych History Identifying Data 56 yo female from [place], presented to ED on 07/11/21, admit for management of wound infection/DVT. Consult is by hospitalist service for irritability and resisting care. Chief Complaint refused psych consult but continued to talk History of Present Illness Patient intermittently refusing meds (including IV heparin drip), vitals, etc and screaming obscenities at staff. No known psych hx, per daughter has been angry about the medical issues she developed during time in [place]. Unclear what patients wants or needs or why she is behaving this way. Already has some home nursing services. Yesterday was unwilling to engage in meaningful discussions around her treatment. Today she voices good understanding that she is waiting on blood cultures. 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 She was cooperative with dressing change per surgical note earlier today. 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 She remains agreeable to home health services. Past Psychiatric History Previous Psych History: no known Allergies Allergy/AdvReac Type Severity Reaction Status Date / Time hydroxyzine Allergy Severe Anaphylaxis Verified 11/09/21 00:25 Home Medications Medication Instructions Recorded Confirmed Type acetaminophen 500 mg tablet 1,000 mg PO BID PRN 11/08/21 11/08/21 History aspirin 81 mg tablet,delayed 81 mg PO DAILY 11/08/21 11/08/21 History release cephalexin 500 mg capsule 500 mg PO TID 11/08/21 11/08/21 History cholecalciferol (vitamin D3) 1,250 50,000 unit PO WK 11/08/21 11/08/21 History mcg (50,000 unit) tablet dapagliflozin 10 mg tablet 10 mg PO DAILY 11/08/21 11/08/21 History (Farxiga) ibuprofen 200 mg tablet (Motrin IB) 600 mg PO BID PRN 11/08/21 11/08/21 History metoprolol succinate 25 mg 25 mg PO QPM 11/08/21 11/08/21 History tablet,extended release 24 hr naproxen sodium 220 mg tablet 440 mg PO .WITH MAXINE MEAL PRN 11/08/21 11/08/21 History (Aleve) ondansetron HCl 4 mg tablet 4 mg PO TID PRN 11/08/21 11/08/21 History oxycodone 5 mg tablet 2.5 - 5 mg PO TID PRN 11/08/21 11/08/21 History pantoprazole 40 mg tablet,delayed 40 mg PO DAILY 11/08/21 11/08/21 History release apixaban 5 mg tablet (Eliquis) 5 mg PO BID #60 tab 11/11/21 Rx Family History refused Personal History Beliefs That Will Affect Care: None Patient History Medical History Degenerative disc disease GERD (gastroesophageal reflux disease) Hypertension Morbid obesity Pre-diabetes Spinal stenosis Tibia/fibula fracture Social History Smoking Status: Never smoker Second Hand Exposure: No; Do You Dip or Chew Tobacco: No; Hx Alcohol Use: Yes Alcohol type: beer Hx Substance Use: No Preferred Language: Nepalese Communication Ability: Effective 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 She is not exhibiting psychomotor restlessness. Her thought processes are concrete but reality based. She denies any thoughts to harm self or others. She voiced understanding of the primary team's recommendations. She does not appear to be responding to internal stimuli and conversation is reality based. Vital Signs (Past 24 Hours): Last Vital Signs Temp 37.2 C 11/10/21 20:16 Pulse 95 H 11/10/21 20:16 Resp 22 11/10/21 20:16 BP 104/66 11/10/21 20:16 Pulse Ox 95 11/10/21 20:16 Results & Data (PSY) Medications Administered Acetaminophen (Acetaminophen 325 Mg Tab) 650 mg PO Q4H PRN PRN Reason: pain/fever Stop: 12/09/21 00:00 Last Admin: 11/10/21 20:13 Dose: 650 mg Documented by: [id number] Apixaban (Apixaban 5 Mg Tablet) 10 mg PO BID [facility] Stop: 11/17/21 20:59 Last Admin: 11/10/21 20:13 Dose: 10 mg Documented by: [id number] Gabapentin (Gabapentin 300 Mg Cap) 300 mg PO TID [facility] Stop: 11/26/21 20:59 Last Admin: 11/10/21 20:13 Dose: 300 mg Documented by: [id number] Admin: 11/10/21 12:56 Dose: Not Given Documented by: [id number] Admin: 11/10/21 08:22 Dose: Not Given Documented by: [id number] Admin: 11/09/21 21:59 Dose: Not Given Documented by: [id number] Sodium Chloride (Nss 1000ml) 1,000 mls @ 75 mls/hr IV .[id number] [facility] Stop: 12/09/21 00:00 Last Admin: 11/11/21 07:56 Dose: 75 mls/hr Documented by: [id number] Infusion: 11/11/21 07:56 Dose: 75 mls/hr Documented by: [id number] Admin: 11/10/21 18:39 Dose: 75 mls/hr Documented by: [id number] Infusion: 11/10/21 18:39 Dose: 75 mls/hr Documented by: [id number] Admin: 11/10/21 06:05 Dose: 75 mls/hr Documented by: [id number] Infusion: 11/09/21 21:37 Dose: 0 mls/hr Documented by: [id number] Admin: 11/09/21 20:49 Dose: Not Given Documented by: [id number] Admin: 11/09/21 01:14 Dose: 75 mls/hr Documented by: [id number] Piperacillin Sod/Tazobactam (Sod 4.5 gm/ Dextrose) 120 mls @ 30 mls/hr IV Q8H [facility]; Protocol Stop: 11/16/21 05:59 Last Admin: 11/11/21 05:44 Dose: 30 mls/hr Documented by: [id number] Infusion: 11/11/21 02:04 Dose: 0 mls/hr Documented by: [id number] Admin: 11/10/21 22:20 Dose: 30 mls/hr Documented by: [id number] Infusion: 11/10/21 18:40 Dose: 0 mls/hr Documented by: [id number] Admin: 11/10/21 14:14 Dose: 30 mls/hr Documented by: [id number] Infusion: 11/10/21 10:33 Dose: 0 mls/hr Documented by: [id number] Admin: 11/10/21 06:06 Dose: 30 mls/hr Documented by: [id number] Infusion: 11/10/21 03:20 Dose: 0 mls/hr Documented by: [id number] Admin: 11/09/21 22:06 Dose: 30 mls/hr Documented by: [id number] Infusion: 11/09/21 21:36 Dose: 0 mls/hr Documented by: [id number] Admin: 11/09/21 16:05 Dose: 30 mls/hr Documented by: [id number] Infusion: 11/09/21 10:48 Dose: 0 mls/hr Documented by: [id number] Admin: 11/09/21 06:48 Dose: 30 mls/hr Documented by: [id number] Daptomycin 600 mg/ Syringe 12 mls @ 6 mls/min IV Q24H [facility]; Protocol Stop: 11/16/21 11:59 Last Admin: 11/10/21 12:11 Dose: 6 mls/min Documented by: [id number] Admin: 11/09/21 11:45 Dose: 6 mls/min Documented by: [id number] Insulin Aspart (Insulin Aspart Per Unit) 0 units SC ACHS [facility] Stop: 12/09/21 07:29 Last Admin: 11/11/21 08:59 Dose: Not Given Documented by: [id number] Admin: 11/10/21 20:22 Dose: Not Given Documented by: [id number] Cosigned by: [id number] Admin: 11/10/21 17:42 Dose: Not Given Documented by: [id number] Admin: 11/10/21 12:55 Dose: Not Given Documented by: [id number] Cosigned by: [id number] Admin: 11/10/21 08:40 Dose: Not Given Documented by: [id number] Admin: 11/09/21 21:39 Dose: Not Given Documented by: [id number] Admin: 11/09/21 20:51 Dose: Not Given Documented by: [id number] Admin: 11/09/21 12:46 Dose: Not Given Documented by: [id number] Admin: 11/09/21 08:44 Dose: Not Given Documented by: [id number] Metoprolol Succinate (Metoprolol Succ 25mg Ext Rel Tab) 25 mg PO QPM [facility] Stop: 12/09/21 20:59 Last Admin: 11/10/21 20:16 Dose: 25 mg Documented by: [id number] Admin: 11/09/21 22:01 Dose: 25 mg Documented by: [id number] Oxycodone HCl (Oxycodone Hcl Ir 5 Mg Tab (Immediate Release)) 2.5 - 5 mg PO TID PRN PRN Reason: Pain Stop: 11/23/21 00:00 Last Admin: 11/09/21 07:36 Dose: 5 mg Documented by: [id number] Oxycodone HCl (Oxycodone Hcl Ir 5 Mg Tab (Immediate Release)) 10 mg PO Q8H PRN PRN Reason: Pain 6-10 Stop: 11/24/21 14:06 Last Admin: 11/11/21 02:40 Dose: 10 mg Documented by: [id number] Admin: 11/10/21 17:31 Dose: 10 mg Documented by: [id number] Pantoprazole Sodium (Pantoprazole 40 Mg Tab) 40 mg PO DAILY [facility] Stop: 12/09/21 08:59 Last Admin: 11/10/21 08:22 Dose: Not Given Documented by: [id number] Admin: 11/09/21 07:37 Dose: 40 mg Documented by: [id number] Polyethylene Glycol (Polyethylene (Miralax) 17 Gm Pack) 17 gm PO DAILY PRN PRN Reason: Constipation Stop: 12/09/21 00:00 Last Admin: 11/10/21 20:22 Dose: 17 gm Documented by: [id number] Coding Level of Care Code 00744 [facility] Intl Hosp Care Lvl 2 Diagnoses Adjustment disorder F43.20
[2021-11-11 09:30] LABS: Basophils # (auto) 0.02 K/uL (0-0.2); Basophils % (auto) 0.3 %; Eosinophils # (auto) 0.33 K/uL (0-0.5); Eosinophils % (auto) 5.7 %; Hematocrit (blood only) 35.2 % (37-47); Hemoglobin 10.9 g/dL (12.0-16.0); Immature Granulocytes # (auto) 0.01 K/uL (0.00-0.02); Immature Granulocytes % (auto) 0.2 %; Lymphocytes # (auto) 2.51 K/uL (1.2-3.4); Lymphocytes % (auto) 43.1 %; Mean Corpuscular Hemoglobin 27.5 pg (25-34); Mean Corpuscular Volume 88.9 fL (80-100); Mean Platelet Volume 8.6 fL (7.4-10.4); Monocytes % (auto) 8.6 %; Neutrophils # (auto) 2.46 K/uL (1.4-6.5); Neutrophils % (auto) 42.1 %; Platelet Count 387 K/uL (130-400); RDW Coefficient of Variation 15.8 % (11.5-14.5); RDW Standard Deviation 51.6 fL (36.4-46.3); Red Blood Count 3.96 M/uL (4.2-5.4); White Blood Count 5.83 K/uL (4.8-10.8)
[2021-11-11] MEDS: ONDANSETRON 4 MG OD TAB PO PRN (09:39)
[2021-11-11] MEDS: APIXABAN 5 MG TABLET PO SCH ×2 (09:42→20:01)
[2021-11-11] MEDS: PANTOprazole 40 MG TAB PO SCH (09:42)
[2021-11-11] MEDS: GABAPENTIN 300 MG CAP PO SCH ×3 (09:42→20:01)
--- NOTE | 2021-11-11 09:44 | Hospitalist Progress Note ---
Date of Service November 11, 2021 Assessment & Plan (1) Acute deep vein thrombosis (DVT) of left lower extremity: (2) Deep incisional surgical site infection: Plan: 56 yo F w/ morbid obesity, history of sleep apnea, but not using CPAP because since she moved from [place] 3 years ago, she lost her CPAP and not using it, history of hypertension, GERD, history of prediabetes presented 11/08 to our ED w/ Left lower extremity infection. 1. Infected left tibia-fibula surgical site. The patient fell on 09/29/2021, had surgery on 09/30/2021 in [place]. Was in [facility] for [facility], discharged on 10/22/2021. --> her daughter drove her back 10/23/2021 to [employer] from [place]. She was in the car for 28 hours. Patient was having some drainage at surgical site, was prescribed Keflex by PCP about a week ago MECHANICAL MAINTENANCE to complete 7 days course, not getting better hence presented to the ED, admitting x-ray shows possible cellulitis. Follow-up admitting blood culture and wound culture. Superficial culture, as well as cultx obtained in OR positive for E. coli and staph aureus (mssa) Continue with Dapto and Zosyn. ID was consulted, however patient refused to talk to them. I discussed with ID, if culture unchanged, patient could be discharged on p.o. Cipro and Doxy -as there was no hardware or bone involvement. Orthopedics consulted, pt is s/p I&D (11/09/21). 2. Nonocclusive left common femoral deep venous thrombosis: Patient had recent long drive/immobility and orthopedic surgery. On IV heparin drip initially, then pt refused medication, then agreed to medication but not to frequent blood work. Eliquis started last night. 3. Other chronic medical conditions: Prediabetes, HTN, GERD, morbid obesity Resume/continue with home meds as and when appropriate. Insulin sliding scale. Hep C positive - follow up w/ PCP/ GI DVT prophylaxis: Eliquis Admission and Anticipated Discharge Date Admission Date: November 08, 2021 Subjective Patient seen in follow-up of infected left tibia-fibula surgical site and nonocclusive left common femoral DVT. Patient is lying in bed, on room air, in NAD. Yesterday, patient refused medications including IV heparin, also refused ID c onsult. Pt is much more cooperative today. As there was difficulty w/ IV heparin - pt refused and then refused blood work associated with it, started pt on Eliquis last night. Patient's daughter who resides in [place] updated over the phone yesterday. Patient reports leg pain, otherwise denies shortness of breath, chest pain, fevers chills, abd. pain, nausea vomiting, diarrhea. Review of Systems Review of Systems: All systems reviewed & are unremarkable except as noted in Subjective Physical Exam Physical Exam: GENERAL: morbidly obese F, not in acute distress. HEENT: NC/AT. EOMI. Pupils equal, round and reactive to light. Oral mucosa, absent teeth and moist. NECK: No JVD, no neck masses. CARDIOVASCULAR: S1 and S2 heard. Regular rate and rhythm. No murmur, no gallop. RESPIRATORY SYSTEM: Normal AP diameter. No accessory muscle use. No wheezing, no crackles. ABDOMEN: Soft. Bowel sounds are present, nontender, no distention. NEURO: Alert and oriented. Speech is clear. No facial droop. Obeys simple commands.Moves extremities. EXTREMITIES:on admission - Left tibia-fibula surgical site w/ deep open wound and drainage seen. Some erythematous changes seen. Some swelling seen. Now s/p I&D, surgical dressings on left lower extremity applied. Results & Data Results & Data ([facility]) Laboratory Results 11/11/21 11/11/21 11/10/21 Range/Units 09:14 09:14 20:17 WBC 5.83 (4.8-10.8) K/uL RBC 3.96 L (4.2-5.4) M/uL Hgb 10.9 L (12.0-16.0) g/dL Hct 35.2 L (37-47) % MCV 88.9 (80-100) fL MCH 27.5 (25-34) pg MCHC 31.0 L (32-36) g/dL RDW Std Deviation 51.6 H (36.4-46.3) fL RDW Coeff of Italo 15.8 H (11.5-14.5) % Plt Count 387 (130-400) K/uL MPV 8.6 (7.4-10.4) fL Immature Gran % (Auto) 0.2 % Neut % (Auto) 42.1 % Lymph % (Auto) 43.1 % Cascade % (Auto) 8.6 % Eos % (Auto) 5.7 % Baso % (Auto) 0.3 % Neut # (Auto) 2.46 (1.4-6.5) K/uL Lymph # (Auto) 2.51 (1.2-3.4) K/uL Cascade # (Auto) 0.50 (0.11-0.59) K/uL Eos # (Auto) 0.33 (0-0.5) K/uL Baso # (Auto) 0.02 (0-0.2) K/uL Immature Gran # (Auto) 0.01 (0.00-0.02) K/uL APTT Pending (21.0-31.0) Seconds PTT Ratio Pending Sodium (136-145) mmol/L Potassium (3.5-5.1) mmol/L Chloride (98-107) mmol/L Carbon Dioxide (21-32) mmol/L Anion Gap (3-11) BUN (6-23) mg/dl Creatinine (0.6-1.2) mg/dl Est Cr Clr Drug Dosing ml/min Est GFR ( Amer) ml/min Est GFR (Non-Af Amer) ml/min BUN/Creatinine Ratio (10-20) Glucose (70-99(Fasting)) mg/dl POC Glucose 120 H (70-99) mg/dl Calcium (8.5-10.1) mg/dl Phosphorus (2.5-4.9) mg/dl Magnesium (1.7-2.4) mg/dl Hepatitis C Ab (EIA) (NON-REACTIVE) Hep C Ab Signal/Cutoff (<1.00) 11/10/21 11/10/21 11/10/21 Range/Units 16:55 16:55 16:55 WBC 7.53 (4.8-10.8) K/uL RBC 4.15 L (4.2-5.4) M/uL Hgb 11.6 L (12.0-16.0) g/dL Hct 36.6 L (37-47) % MCV 88.2 (80-100) fL MCH 28.0 (25-34) pg MCHC 31.7 L (32-36) g/dL RDW Std Deviation 51.0 H (36.4-46.3) fL RDW Coeff of Italo 15.8 H (11.5-14.5) % Plt Count 413 H (130-400) K/uL MPV 8.7 (7.4-10.4) fL Immature Gran % (Auto) % Neut % (Auto) % Lymph % (Auto) % Cascade % (Auto) % Eos % (Auto) % Baso % (Auto) % Neut # (Auto) (1.4-6.5) K/uL Lymph # (Auto) (1.2-3.4) K/uL Cascade # (Auto) (0.11-0.59) K/uL Eos # (Auto) (0-0.5) K/uL Baso # (Auto) (0-0.2) K/uL Immature Gran # (Auto) (0.00-0.02) K/uL APTT 23.1 (21.0-31.0) Seconds PTT Ratio 0.8 Sodium 138 (136-145) mmol/L Potassium 3.8 (3.5-5.1) mmol/L Chloride 104 (98-107) mmol/L Carbon Dioxide 27 (21-32) mmol/L Anion Gap 7 (3-11) BUN 9 (6-23) mg/dl Creatinine 0.57 L (0.6-1.2) mg/dl Est Cr Clr Drug Dosing 174.7 ml/min Est GFR ( Amer) 121.0 ml/min Est GFR (Non-Af Amer) 104.4 ml/min BUN/Creatinine Ratio 15.8 (10-20) Glucose 123 H (70-99(Fasting)) mg/dl POC Glucose (70-99) mg/dl Calcium 10.5 H (8.5-10.1) mg/dl Phosphorus 3.3 (2.5-4.9) mg/dl Magnesium 2.0 (1.7-2.4) mg/dl Hepatitis C Ab (EIA) (NON-REACTIVE) Hep C Ab Signal/Cutoff (<1.00) 11/08/21 Range/Units 19:25 WBC (4.8-10.8) K/uL RBC (4.2-5.4) M/uL Hgb (12.0-16.0) g/dL Hct (37-47) % MCV (80-100) fL MCH (25-34) pg MCHC (32-36) g/dL RDW Std Deviation (36.4-46.3) fL RDW Coeff of Italo (11.5-14.5) % Plt Count (130-400) K/uL MPV (7.4-10.4) fL Immature Gran % (Auto) % Neut % (Auto) % Lymph % (Auto) % Cascade % (Auto) % Eos % (Auto) % Baso % (Auto) % Neut # (Auto) (1.4-6.5) K/uL Lymph # (Auto) (1.2-3.4) K/uL Cascade # (Auto) (0.11-0.59) K/uL Eos # (Auto) (0-0.5) K/uL Baso # (Auto) (0-0.2) K/uL Immature Gran # (Auto) (0.00-0.02) K/uL APTT (21.0-31.0) Seconds PTT Ratio Sodium (136-145) mmol/L Potassium (3.5-5.1) mmol/L Chloride (98-107) mmol/L Carbon Dioxide (21-32) mmol/L Anion Gap (3-11) BUN (6-23) mg/dl Creatinine (0.6-1.2) mg/dl Est Cr Clr Drug Dosing ml/min Est GFR ( Amer) ml/min Est GFR (Non-Af Amer) ml/min BUN/Creatinine Ratio (10-20) Glucose (70-99(Fasting)) mg/dl POC Glucose (70-99) mg/dl Calcium (8.5-10.1) mg/dl Phosphorus (2.5-4.9) mg/dl Magnesium (1.7-2.4) mg/dl Hepatitis C Ab (EIA) REACTIVE A (NON-REACTIVE) Hep C Ab Signal/Cutoff 26.90 H (<1.00) Medications Administered Current Inpatient Medications Acetaminophen (Acetaminophen 325 Mg Tab) 650 mg PO Q4H PRN PRN Reason: pain/fever Stop: 12/09/21 00:00 Last Admin: 11/10/21 20:13 Dose: 650 mg Documented by: Apixaban (Apixaban 5 Mg Tablet) 10 mg PO BID RADHA Stop: 11/17/21 20:59 Last Admin: 11/11/21 09:42 Dose: 10 mg Documented by: Dextrose (Dextrose 50% 50 Ml Syringe) 25 - 50 ml IV UD PRN; Protocol PRN Reason: Hypoglycemia Protocol Stop: 12/09/21 00:44 Gabapentin (Gabapentin 300 Mg Cap) 300 mg PO TID RADHA Stop: 11/26/21 20:59 Last Admin: 11/11/21 09:42 Dose: 300 mg Documented by: Glucagon (Glucagon For Inj 1 Mg Vial) 1 mg IM UD PRN; Protocol PRN Reason: Hypoglycemia Protocol Stop: 12/09/21 00:44 Glucose (Glucose 40% Gel 15 Gm Tube) 15 - 30 gm PO UD PRN; Protocol PRN Reason: Hypoglycemia Protocol Stop: 12/09/21 00:44 Glucose (Glucose 10 Tabs/Tube) 4 - 8 tabs PO UD PRN; Protocol PRN Reason: Hypoglycemia Protocol Stop: 12/09/21 00:44 Sodium Chloride (Nss 1000ml) 1,000 mls @ 75 mls/hr IV .[id number] RADHA Stop: 12/09/21 00:00 Last Admin: 11/11/21 07:56 Dose: 75 mls/hr Documented by: Piperacillin Sod/Tazobactam (Sod 4.5 gm/ Dextrose) 120 mls @ 30 mls/hr IV Q8H [facility]; Protocol Stop: 11/16/21 05:59 Last Admin: 11/11/21 05:44 Dose: 30 mls/hr Documented by: Daptomycin 600 mg/ Syringe 12 mls @ 6 mls/min IV Q24H [facility]; Protocol Stop: 11/16/21 11:59 Last Admin: 11/10/21 12:11 Dose: 6 mls/min Documented by: Insulin Aspart (Insulin Aspart Per Unit) 0 units SC ACHS [facility] Stop: 12/09/21 07:29 Last Admin: 11/11/21 08:59 Dose: Not Given Documented by: Metoprolol Succinate (Metoprolol Succ 25mg Ext Rel Tab) 25 mg PO QPM [facility] Stop: 12/09/21 20:59 Last Admin: 11/10/21 20:16 Dose: 25 mg Documented by: Miscellaneous (Carbohydrates For Hypoglycemia ) 15 - 30 gm PO UD PRN PRN Reason: Hypoglycemia Treatment Stop: 12/09/21 00:44 Morphine Sulfate (Morphine Sulfate 4 Mg/Ml 1 Ml Carp\Vial) 3 mg IV Q3H PRN PRN Reason: Pain Stop: 11/24/21 14:07 Ondansetron HCl (Ondansetron Inj 2 Mg/Ml 2 Ml Vial) 4 mg IV Q6H PRN PRN Reason: Nausea Stop: 12/09/21 00:00 Ondansetron HCl (Ondansetron 4 Mg Od Tab) 4 mg PO TID PRN PRN Reason: Nausea And Vomiting Stop: 12/09/21 00:35 Last Admin: 11/11/21 09:39 Dose: 4 mg Documented by: Oxycodone HCl (Oxycodone Hcl Ir 5 Mg Tab (Immediate Release)) 2.5 - 5 mg PO TID PRN PRN Reason: Pain Stop: 11/23/21 00:00 Last Admin: 11/09/21 07:36 Dose: 5 mg Documented by: Oxycodone HCl (Oxycodone Hcl Ir 5 Mg Tab (Immediate Release)) 10 mg PO Q8H PRN PRN Reason: Pain 6-10 Stop: 11/24/21 14:06 Last Admin: 11/11/21 02:40 Dose: 10 mg Documented by: Pantoprazole Sodium (Pantoprazole 40 Mg Tab) 40 mg PO DAILY RADHA Stop: 12/09/21 08:59 Last Admin: 11/11/21 09:42 Dose: 40 mg Documented by: Polyethylene Glycol (Polyethylene (Miralax) 17 Gm Pack) 17 gm PO DAILY PRN PRN Reason: Constipation Stop: 12/09/21 00:00 Last Admin: 11/10/21 20:22 Dose: 17 gm Documented by: (1) Acute deep vein thrombosis (DVT) of left lower extremity Affected thrombotic vein of extremity: femoral Qualified Code(s): I82.412 - Acute embolism and thrombosis of left femoral vein
--- NOTE | 2021-11-11 09:55 | Orthopedic Progress Note ---
Date of Service November 11, 2021 Assessment & Plan (1) Encounter for post surgical wound check: Plan: Patient was seen in her room this morning. Dressings were changed by me. New Dax wrap was applied. She did request photographs of her wounds, which was completed on her phone. She did send these to her daughter. Patient was reassured that her wounds are looking very good at this point. There is no active drainage and there is no significant erythema or warmth. Pain does seem out of proportion to her presentation. We will continue to follow while in the hospital. Continue her antibiotics. We did have a nice discussion regarding her current living situation, the mechanism behind her original tibial injury, and the town she currently lives in. Care plan discussed with Dr. Rodriguez later this morning. Admission and Anticipated Discharge Date Admission Date: November 08, 2021 Supervising Physician Co-Signing Physician Notes I, Dr. Rodriguez, saw and examined the patient and agree with the above findings and plan of care we discussed. Patient remain NWB LLE Re-enforce/change DSD as needed. Continue Abx, both bacteria appears sensitive to Bactrim DS. She seemed more likely to accept ID consult after conversation today. She does want to go home. Recommend Pain Management consult. Continue care per primary service. Subjective Patient is seen in her room this morning. She is complaining of severe nausea and severe pain. She is wondering why her leg is in sinus pain. Denies any fevers or chills. No chest pain or shortness of breath. She is currently talking on the phone with her daughter. She is quite conversant with me. She is interested in her care, but she is reportedly different than previous evaluations. Physical Exam Physical Exam: Left lower leg evaluation reveals intact but disheveled postsurgical dressings. Upon removal, there is a considerable amount of dried drainage on her inner bandages. She currently has no active bleeding from her w ounds. Surrounding tissue is without warmth or erythema. Her wounds look quite good at this point. Lower leg is nonfluctuant and there is no significant visible edema. Musculoskeletal: Patient has intact motor function on her and ankle. She is able to perform a straight leg raise. She does complain of pain with this. She does lack a few degrees of terminal extension. Flexion to around 45 degrees without much difficulty. Neurologic: Sensation is intact across the lower leg and foot by soft touch. Peripheral pulses are 2+. Results & Data ([facility]) Laboratory Results CBC obtained this morning shows a white count of 5.8. H&H of 10.9 and 35.2. BSG yesterday was a max of 122. Microbiology 11/09/21 15:21 Gram Stain - Final Leg,Left Aerobic and Anaerobic Culture - Preliminary Escherichia coli Staphylococcus aureus 11/08/21 22:00 Gram Stain - Final Leg,Left Deep Wound Culture - Preliminary Escherichia coli Staphylococcus aureus 11/08/21 19:25 Aerobic Blood Culture - Preliminary Blood No growth in Aerobic bottle after 48 hours. Anaerobic Blood Culture - Preliminary No growth in Anaerobic bottle after 48 hours. 11/08/21 19:09 Aerobic Blood Culture - Preliminary Blood No growth in Aerobic bottle after 48 hours. Anaerobic Blood Culture - Preliminary No growth in Anaerobic bottle after 48 hours. Gram Stain Final 11/09/21-0732 Gram Stain Result No WBCs Seen, No Organisms Seen Deep Wound Culture Preliminary 11/11/21-1528 Organism 1 Escherichia coli Quantity Few Sens Sensitivities to Follow Organism 2 Staphylococcus aureus Quantity Few Sens Sensitivities to Follow E coli S aureus RX M.I.C. RX M.I.C. --- --------- --- --------- Amox/Clav S <=8/4 Ampicillin R >16 Amp/Sul I 16/8 Cefazolin I 4 Cefepime S <=2 Ceftriaxone S <=1 Ciprofloxacin S <=0.25 Clindamycin S <=0.5 Daptomycin S 1 Ertapenem S <=0.5 Erythromycin S <=0.5 Gentamicin S <=4 Levofloxacin S <=0.5 Meropenem S <=1 Oxacillin S <=0.25 Tetracycline S <=4 Tobramycin S <=4 Trimeth/Sulfa S <=2/38 S <=0.5/9.5 Pip/Tazo S <=16 Vancomycin S 2 S = SENSITIVE I = INTERMEDIATE R = RESISTANT
[2021-11-11 10:12] LABS: Partial Thromboplastin Ratio 0.9; Partial Thromboplastin Time 25.6 Seconds (21.0-31.0)
[2021-11-11] MEDS ORDERED: oxyCODONE HCL IR 5 MG TAB (IMMEDIATE RELEASE) PO PRN (14:20)
[2021-11-11] MEDS: DAPTOmycin 600 MG in SYRINGE 0 ML IV SCH (14:46)
[2021-11-11] MEDS: METOPROLOL SUCC 25MG EXT REL TAB PO SCH (20:01)
[2021-11-12] MEDS: oxyCODONE HCL IR 5 MG TAB (IMMEDIATE RELEASE) PO PRN (01:14)
[2021-11-12] MEDS: PIPERACILLIN/TAZOBACTAM 4.5 GM in DEXTROSE 5% 100 ML IV SCH ×3 (05:34→22:39)
[2021-11-12] MEDS ORDERED: POTASSIUM CHLORIDE CRTAB 20 MEQ TABCR PO STA (06:10)
--- NOTE | 2021-11-12 06:11 | Communication Note ---
Date of Service: November 12, 2021 Patient with transient chest pain and palpitation symptoms. EKG as per my interpretation rate 80, NSR, normal axis, no ischemia Check a.m, chemistry, TSH, troponin now ,
--- NOTE | 2021-11-12 07:13 | XRay Report ---
XR chest 1V portable HISTORY: 56 years-old Female cp acute atypical chest pain COMPARISON: None TECHNIQUE: Portable AP view of the chest FINDINGS: The cardiac silhouette is enlarged. Moderate right hemidiaphragmatic elevation. Hypoinflation with br onchovascular crowding. No pneumothorax, large pleural effusion or overt pulmonary edema. Bones of th e chest appear grossly intact. Study is limited secondary to patient body habitus. IMPRESSION: 1. Hypoinflation with right hemidiaphragmatic elevation. 2. Cardiomegaly. ACT 112: Negative or not required by law. The above report was generated using voice recognition software. It may contain grammatical, syntax o r spelling errors. Electronically signed by: Jonathan Collins M.D. 11/12/2021 7:12 AM
--- NOTE | 2021-11-12 08:36 | Hospitalist Progress Note ---
Date of Service November 12, 2021 Assessment & Plan (1) Acute deep vein thrombosis (DVT) of left lower extremity: (2) Deep incisional surgical site infection: Plan: 56 yo F w/ morbid obesity, history of sleep apnea, but not using CPAP because since she moved from [place] 3 years ago, she lost her CPAP and not using it, history of hypertension, GERD, history of prediabetes presented 11/08 to our ED w/ Left lower extremity infection. 1. Infected left tibia-fibula surgical site. The patient fell on 09/29/2021, had surgery on 09/30/2021 in [place]. Was in senior living for 2 weeks, discharged on 10/22/2021. --> her daughter drove her back 10/23/2021 to [place] from [place]. She was in the car for 28 hours. Patient was having some drainage at surgical site, was prescribed Keflex by PCP about a week ago MEDICARE NURSE to complete 7 days course, not getting better hence presented to the ED, admitting x-ray shows possible cellulitis. Follow-up admitting blood culture and wound culture. Superficial culture, as well as cultx obtained in OR positive for E. coli and staph aureus (mssa) Continue with Dapto and Zosyn. ID was consulted, however patient refused to talk to them. I discussed with ID, if culture unchanged, patient could be discharged on p.o. Cipro and Doxy -as there was no hardware or bone involvement. Orthopedics consulted, pt is s/p I&D (11/09/21). Dressings reapplied/reinforced, change when becomes saturated 11/12 - Pt seen by pain management - gabapentin increased to 600 mg TID, start percocet 10/325 1 tablet p.o. every 4 hours 2. Nonocclusive left common femoral deep venous thrombosis: Patient had recent long drive/immobility and orthopedic surgery. On IV heparin drip initially, then pt refused medication, then agreed to medication but not to frequent blood work. Eliquis started 3. Other chronic medical conditions: Prediabetes, HTN, GERD, morbid obesity Resume/continue with home meds as and when appropriate. Insulin sliding scale. Hep C positive - follow up w/ PCP/ GI DVT prophylaxis: Eliquis Admission and Anticipated Discharge Date Admission Date: November 08, 2021 Subjective Patient seen in follow-up of infected left tibia-fibula surgical site and nonocclusive left common femoral DVT. Patient is lying in bed, on room air, in [facility]. She was seen by pain management today. Gabapentin dose was increased, and patient was started on Percocet. Currently says that she is feeling better. Overnight she also reported chest pain, EKG and troponin was obtained, by auto dismantler. Both negative. Currently denies any more chest pain or palpitations, or shortness of breath. She is supposed to be using CPAP for FAB, however she currently does not have it and does not want to use one in the hospital. Counseled her on importance of following up with PCP, and obtaining CPAP again. No fevers chills, abd. pain, nausea vomiting, diarrhea. Review of Systems Review of Systems: All systems reviewed & are unremarkable except as noted in Subjective Physical Exam Physical Exam: GENERAL: morbidly obese F, not in acute distress. HEENT: NC/AT. EOMI. Pupils equal, round and reactive to light. Oral mucosa, absent teeth and moist. NECK: No JVD, no neck masses. CARDIOVASCULAR: S1 and S2 heard. Regular rate and rhythm. No murmur, no gallop. RESPIRATORY SYSTEM: Normal AP diameter. No accessory muscle use. No wheezing, no crackles. ABDOMEN: Soft. Bowel sounds are present, nontender, no distention. NEURO: Alert and oriented. Speech is clear. No facial droop. Obeys simple commands.Moves extremities. EXTREMITIES:on admission - Left tibia-fibula surgical site w/ deep open wound and drainage seen. Some erythematous changes seen. Some swelling seen. Now s/p I&D, surgical dressings on left lower extremity applied. Results & Data Results & Data ([place]) Vital Signs (Past 12 Hours) Vital Signs Temp Pulse Pulse Resp BP BP Pulse Ox 11/12/21 08:00 36.6 C 84 20 109/74 90 11/11/21 22:48 36.5 C 94 H 22 122/83 94 Medications Administered Current Inpatient Medications Acetaminophen (Acetaminophen 325 Mg Tab) 650 mg PO Q4H PRN PRN Reason: pain/fever Stop: 12/09/21 00:00 Last Admin: 11/10/21 20:13 Dose: 650 mg Documented by: Apixaban (Apixaban 5 Mg Tablet) 10 mg PO BID RADHA Stop: 11/17/21 20:59 Last Admin: 11/11/21 20:01 Dose: 10 mg Documented by: Dextrose (Dextrose 50% 50 Ml Syringe) 25 - 50 ml IV UD PRN; Protocol PRN Reason: Hypoglycemia Protocol Stop: 12/09/21 00:44 Gabapentin (Gabapentin 300 Mg Cap) 300 mg PO TID RADHA Stop: 11/26/21 20:59 Last Admin: 11/11/21 20:01 Dose: 300 mg Documented by: Glucagon (Glucagon For Inj 1 Mg Vial) 1 mg IM UD PRN; Protocol PRN Reason: Hypoglycemia Protocol Stop: 12/09/21 00:44 Glucose (Glucose 40% Gel 15 Gm Tube) 15 - 30 gm PO UD PRN; Protocol PRN Reason: Hypoglycemia Protocol Stop: 12/09/21 00:44 Glucose (Glucose 10 Tabs/Tube) 4 - 8 tabs PO UD PRN; Protocol PRN Reason: Hypoglycemia Protocol Stop: 12/09/21 00:44 Piperacillin Sod/Tazobactam (Sod 4.5 gm/ Dextrose) 120 mls @ 30 mls/hr IV Q8H [facility]; Protocol Stop: 11/16/21 05:59 Last Admin: 11/12/21 05:34 Dose: 30 mls/hr Documented by: Daptomycin 600 mg/ Syringe 12 mls @ 6 mls/min IV Q24H [facility]; Protocol Stop: 11/16/21 11:59 Last Admin: 11/11/21 14:46 Dose: 6 mls/min Documented by: Insulin Aspart (Insulin Aspart Per Unit) 0 units SC ACHS [facility] Stop: 12/09/21 07:29 Last Admin: 11/11/21 20:48 Dose: Not Given Documented by: Metoprolol Succinate (Metoprolol Succ 25mg Ext Rel Tab) 25 mg PO QPM RADHA Stop: 12/09/21 20:59 Last Admin: 11/11/21 20:01 Dose: 25 mg Documented by: Miscellaneous (Carbohydrates For Hypoglycemia ) 15 - 30 gm PO UD PRN PRN Reason: Hypoglycemia Treatment Stop: 12/09/21 00:44 Morphine Sulfate (Morphine Sulfate 4 Mg/Ml 1 Ml Carp\Vial) 3 mg IV Q3H PRN PRN Reason: Pain Stop: 11/24/21 14:07 Last Admin: 11/11/21 11:02 Dose: 3 mg Documented by: Ondansetron HCl (Ondansetron Inj 2 Mg/Ml 2 Ml Vial) 4 mg IV Q6H PRN PRN Reason: Nausea Stop: 12/09/21 00:00 Ondansetron HCl (Ondansetron 4 Mg Od Tab) 4 mg PO TID PRN PRN Reason: Nausea And Vomiting Stop: 12/09/21 00:35 Last Admin: 11/11/21 09:39 Dose: 4 mg Documented by: Oxycodone HCl (Oxycodone Hcl Ir 5 Mg Tab (Immediate Release)) 10 mg PO Q5H PRN PRN Reason: Pain 6-10 Stop: 11/24/21 14:06 Last Admin: 11/12/21 01:14 Dose: 10 mg Documented by: Oxycodone HCl (Oxycodone Hcl Ir 5 Mg Tab (Immediate Release)) 5 mg PO Q4H PRN PRN Reason: Pain 3-5 Stop: 11/23/21 00:00 Pantoprazole Sodium (Pantoprazole 40 Mg Tab) 40 mg PO DAILY RADHA Stop: 12/09/21 08:59 Last Admin: 11/11/21 09:42 Dose: 40 mg Documented by: Polyethylene Glycol (Polyethylene (Miralax) 17 Gm Pack) 17 gm PO DAILY PRN PRN Reason: Constipation Stop: 12/09/21 00:00 Last Admin: 11/10/21 20:22 Dose: 17 gm Documented by: (1) Acute deep vein thrombosis (DVT) of left lower extremity Affected thrombotic vein of extremity: femoral Qualified Code(s): I82.412 - Acute embolism and thrombosis of left femoral vein
--- NOTE | 2021-11-12 08:52 | Pain Management Consultation ---
Date of Consultation November 12, 2021 Assessment & Plan (1) Deep incisional surgical site infection: (2) Status post incision and drainage: (3) Morbid obesity: 1. Will discontinue Oxy IR and initiate Percocet 10/325 1 tablet p.o. every 4 hours as needed for breakthrough pain 2. Will progress gabapentin to 600 mg 3 times daily 3. Patient will reserve morphine 3 mg IV for pain not well controlled with Percocet. Further adjustment of opiate therapy pending response. Thank you for allowing us to participate in the care of Mrs. Vidal History of Present Illness Reason for Consultation: Left lower leg pain s/p debridement Requesting Physician: Rajesh Perdomo PA-C Attending Physician: Prakash Bullock MD History of Present Illness Mrs. Vidal is a morbidly obese 56-year-old white female who was admitted due to left lower extremity infection. The patient has a recent history of a fall while visiting family in [place] with fracture of left tib-fib which required ORIF procedure. The patient was then in [place] [facility] rehab x3 weeks in [place] and then drove back to [place] in early October. Patient was experiencing progressive difficulties with poor ambulatory ability and some increasing pain and redness. The patient subsequently underwent incision and drainage by Dr. Rodriguez on 11/08/2021. She remains on antibiotic therapy. She has had increased pain in the postoperative setting. She is describing burning discomfort with [id number] affecting the leg from the knee to the ankle in a nondermatomal pattern as well as some deep aching pain with sharpness near the incisional site. She indicated that her pain ranges between a 6/10 at its best and 10/10 at its worst. She is finding her current pain medication to be effective for 2-3 hours only at "take the edge off". She does report prior utilization of Percocet with efficacy in the past. She was initiated on gabapentin 300 mg 3 times daily over the past few days without notable side effects. She does report prior history of use of gabapentin for back pain without benefit, but she is unaware of prior dosing. Patient denies any prior chronic utilization of opiate therapy in the outpatient setting. She was prescribed some Oxy IR upon her return to [place] for postoperative pain by her PCP per her report. Patient denies any axial low back pain or lumbar r adicular component to her pain complaints. Patient has no further constitutional complaints. Plan of care discussed with Dr. Saldaña. Pain Assessment Full Body Front + Back: 1. Left lower leg from knee to ankle status post incision and drainage Pain scale - at its best (0-10): 6 Pain scale - at its worst (0-10): 10 Allergies Allergy/AdvReac Type Severity Reaction Status Date / Time hydroxyzine Allergy Severe Anaphylaxis Verified 11/09/21 00:25 Home Medications Medication Instructions Recorded Confirmed Type acetaminophen 500 mg tablet 1,000 mg PO BID PRN 11/08/21 11/08/21 History aspirin 81 mg tablet,delayed 81 mg PO DAILY 11/08/21 11/08/21 History release cephalexin 500 mg capsule 500 mg PO TID 11/08/21 11/08/21 History cholecalciferol (vitamin D3) 1,250 50,000 unit PO WK 11/08/21 11/08/21 History mcg (50,000 unit) tablet dapagliflozin 10 mg tablet 10 mg PO DAILY 11/08/21 11/08/21 History (Farxiga) ibuprofen 200 mg tablet (Motrin IB) 600 mg PO BID PRN 11/08/21 11/08/21 History metoprolol succinate 25 mg 25 mg PO QPM 11/08/21 11/08/21 History tablet,extended release 24 hr naproxen sodium 220 mg tablet 440 mg PO .WITH MAXINE MEAL PRN 11/08/21 11/08/21 History (Aleve) ondansetron HCl 4 mg tablet 4 mg PO TID PRN 11/08/21 11/08/21 History oxycodone 5 mg tablet 2.5 - 5 mg PO TID PRN 11/08/21 11/08/21 History pantoprazole 40 mg tablet,delayed 40 mg PO DAILY 11/08/21 11/08/21 History release apixaban 5 mg tablet (Eliquis) 5 mg PO BID #60 tab 11/11/21 Rx Pain History Pain Intensity Pain scale - at its best (0-10): 6 Pain scale - at its worst (0-10): 10 Patient History Medical History (Updated 11/11/21 @ 14:33 by Georgie Boucher MD) Degenerative disc disease GERD (gastroesophageal reflux disease) Hypertension Morbid obesity Pre-diabetes Spinal stenosis Tibia/fibula fracture Surgical History (Updated 11/12/21 @ 08:50 by El Hernandez PA-C) Status post incision and drainage Left lower leg 11/08/2021 Social History Smoking Status: Never smoker Second Hand Exposure: No; Do You Dip or Chew Tobacco: No; Hx Alcohol Use: Yes Alcohol type: beer Hx Substance Use: No Preferred Language: Sami Communication Ability: Effective 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 Speech and thought process appropriate. Mood and affect appropriate. Cognition intact. Patient morbidly obese and physically deconditioned state. Head: Normocephalic and atraumatic. ENT: No evidence of nasal or oral mucosal lesions. Mucous membranes are moist. Eyes: Pupils equal round reactive to light. Abdomen: Soft and nondistended. No organomegaly. Bowel sounds active. Large and protuberant. Lower extremities: Sensation is intact distally of the feet and toes to sharp and dull. Distal pulses were 2+ at the dorsalis pedis bilaterally. Capillary refill was 1-2 seconds. There is no coldness of the extremity. The incisional site was viewed proximal to the knee which had no evidence of any active discharge or drainage and minimal erythema. Patient has generalized tenderness to palpation over the entire pretibial region with slight hyperalgesia response. Neurologic: Cranial nerves grossly intact.
[2021-11-12 08:54] LABS: Partial Thromboplastin Time 26.5 Seconds (21.0-31.0)
[2021-11-12 08:56] LABS: Hematocrit (blood only) 32.8 % (37-47); Hemoglobin 10.1 g/dL (12.0-16.0); Mean Corpuscular Hgb Conc 30.8 g/dL (32-36); Mean Corpuscular Volume 90.9 fL (80-100); Mean Platelet Volume 8.7 fL (7.4-10.4); Platelet Count 408 K/uL (130-400); RDW Coefficient of Variation 15.7 % (11.5-14.5); RDW Standard Deviation 52.7 fL (36.4-46.3); Red Blood Count 3.61 M/uL (4.2-5.4)
[2021-11-12 08:58] LABS: Potassium 3.9 mmol/L (3.5-5.1)
[2021-11-12 08:59] LABS: BUN Creatinine Ratio 18.5 (10-20); Calcium 9.9 mg/dl (8.5-10.1); Creatinine Clr Calc Pharmacy 153.2 ml/min; Est GFR (African American) 115.8 ml/min; Est GFR (Non-African American) 99.9 ml/min; Magnesium 1.7 mg/dl (1.7-2.4); Phosphorus 3.5 mg/dl (2.5-4.9)
[2021-11-12] MEDS: ONDANSETRON 4 MG OD TAB PO PRN (09:08)
[2021-11-12] MEDS: PANTOprazole 40 MG TAB PO SCH (09:09)
[2021-11-12] MEDS: APIXABAN 5 MG TABLET PO SCH ×2 (09:09→19:30)
[2021-11-12] MEDS: INSULIN ASPART PER UNIT SC SCH ×4 (09:17→21:11)
[2021-11-12] MEDS: oxyCODONE/ACETAMINOPHEN 10-325 TAB PO PRN ×3 (09:28→19:35)
--- NOTE | 2021-11-12 10:20 | Orthopedic Progress Note ---
Date of Service November 12, 2021 Assessment & Plan (1) Status post incision and drainage: Plan: POD # 3 s/p ID LLE due to superficial infection to fascia 5 weeks s/p ORIF Left Tibial Plateau in [place]. Patient is to remain NWB LLE Dressing was reapplied to the patient's left lower extremity today. Nursing may reinforce Or change if it becomes saturated. Continue Abx, both bacteria appears sensitive to Bactrim DS. Appreciate pain management consultation yesterday. They recommended Percocet 10/325 1 tablet p.o. every 4 hours as needed for breakthrough pain; Will progress gabapentin to 600 mg 3 times daily; Patient will reserve morphine 3 mg IV for pain not well controlled with Percocet. Further adjustment of opiate therapy pending response. She has yet to meet with infectious disease, may be more receptive to a consultation now. Continue care per primary service. Follow-up next week in office for evaluation of wounds. Present on Admission?: No Admission and Anticipated Discharge Date Admission Date: November 08, 2021 Supervising Physician Co-Signing Physician Notes I, Dr. Rodriguez, saw and examined the patient and agree with the above findings and plan of care we discussed. Patient remain NWB LLE Re-enforce/change DSD as needed. Continue Abx, both bacteria appears sensitive to Bactrim DS. She seemed more likely to accept ID consult after conversation today. She does want to go home. Appreciate Pain Management consult, which appears to be helping with her pain. Continue care per primary service. Follow-up next week in office for evaluation of wounds. Subjective This 56-year-old female seen today. She is 3 days status post irrigation debridement for a left lower leg infection. Patient states that she had a tibial fracture while she was visiting family in [place]. She states that upon returning to [place] she developed swelling from the incision site as well as drainage that required surgical intervention. Patient's dressing that was applied yesterday has slid down exposing the proximalmost portion of the anterior incision site. She complains of severe pain in the leg but is able to move it. She is currently texting on her phone to family. She denies chest pain, shortness of breath, fever, chills, sweats, lethargy, numbness or tingling in her left lower extremity. She also denies nausea, vomiting, diarrhea or difficulty voiding. Review of Systems Review of Systems: All systems reviewed & are unremarkable except as noted in Subjective Physical Exam Physical Exam: Left lower extremity: Dressing was removed. There is some blood-tinged drainage on the 4 x 4's and ABDs. Her incision sites are closed completely with no active drainage. Sutures are intact. A new dressing consisting of sterile 4 x 4's ABDs, Kerlix and Dax bandages were reapplied. I extended the Dax bandage as far of her thigh as possible to keep the wound covered. She is able to perform an active straight leg raise test. She is able to actively dorsi and plantarflex her foot without issue. Extension is to 2 degrees and flexion to approximately 40 degrees in her knee. She does have tenderness to palpation circumferentially around the incision sites. Her peripheral pulses are easily palpable 2+. She is neurovascularly intact in left lower extremity. Results & Data ([facility]) Vital Signs (Past 12 Hours) Vital Signs Temp Pulse Pulse Resp BP BP Pulse Ox 11/12/21 08:00 36.6 C 84 20 109/74 90 11/11/21 22:48 36.5 C 94 H 22 122/83 94 Diagnostic Findings Laboratory Results WBC 6.10 K/uL (4.8-10.8) 11/12/21 07:57 RBC 3.61 M/uL (4.2-5.4) L 11/12/21 07:57 Hgb 10.1 g/dL (12.0-16.0) L 11/12/21 07:57 Hct 32.8 % (37-47) L 11/12/21 07:57 MCV 90.9 fL (80-100) 11/12/21 07:57 MCH 28.0 pg (25-34) 11/12/21 07:57 MCHC 30.8 g/dL (32-36) L 11/12/21 07:57 RDW Std Deviation 52.7 fL (36.4-46.3) H 11/12/21 07:57 RDW Coeff of Italo 15.7 % (11.5-14.5) H 11/12/21 07:57 Plt Count 408 K/uL (130-400) H 11/12/21 07:57 MPV 8.7 fL (7.4-10.4) 11/12/21 07:57 Immature Gran % (Auto) 0.2 % 11/11/21 09:14 Neut % (Auto) 42.1 % 11/11/21 09:14 Lymph % (Auto) 43.1 % 11/11/21 09:14 Routt % (Auto) 8.6 % 11/11/21 09:14 Eos % (Auto) 5.7 % 11/11/21 09:14 Baso % (Auto) 0.3 % 11/11/21 09:14 Neut # (Auto) 2.46 K/uL (1.4-6.5) 11/11/21 09:14 Lymph # (Auto) 2.51 K/uL (1.2-3.4) 11/11/21 09:14 Routt # (Auto) 0.50 K/uL (0.11-0.59) 11/11/21 09:14 Eos # (Auto) 0.33 K/uL (0-0.5) 11/11/21 09:14 Baso # (Auto) 0.02 K/uL (0-0.2) 11/11/21 09:14 Immature Gran # (Auto) 0.01 K/uL (0.00-0.02) 11/11/21 09:14 Absolute Nucleated RBC Cancelled 11/09/21 16:15 Nucleated RBC % (auto) Cancelled 11/09/21 16:15 Neutrophils % (Manual) Cancelled 11/09/21 16:15 Band Neutrophils % Cancelled 11/09/21 16:15 Lymphocytes % (Manual) Cancelled 11/09/21 16:15 Prolymphocyte % Cancelled 11/09/21 16:15 Reactive Lymphs % (Man) Cancelled 11/09/21 16:15 Monocytes % (Manual) Cancelled 11/09/21 16:15 Eosinophils % (Manual) Cancelled 11/09/21 16:15 Basophils % (Manual) Cancelled 11/09/21 16:15 Metamyelocytes % (Man) Cancelled 11/09/21 16:15 Myelocytes % (Man) Cancelled 11/09/21 16:15 Promyelocytes % (Man) Cancelled 11/09/21 16:15 Blast Cells % (Manual) Cancelled 11/09/21 16:15 Plasma Cell % (Manual) Cancelled 11/09/21 16:15 Other Cells % Cancelled 11/09/21 16:15 Nucleated RBC % Cancelled 11/09/21 16:15 Neutrophils # (Manual) Cancelled 11/09/21 16:15 Band Neutrophils # Cancelled 11/09/21 16:15 Total Absolute Neuts Cancelled 11/09/21 16:15 Lymphocytes # (Manual) Cancelled 11/09/21 16:15 Prolymphocyte # Cancelled 11/09/21 16:15 Reactive Lymphs # Cancelled 11/09/21 16:15 Total Abs Lymphocytes Cancelled 11/09/21 16:15 Monocytes # (Manual) Cancelled 11/09/21 16:15 Eosinophils # (Manual) Cancelled 11/09/21 16:15 Basophils # (Manual) Cancelled 11/09/21 16:15 Metamyelocytes # (Man) Cancelled 11/09/21 16:15 Myelocytes # (Manual) Cancelled 11/09/21 16:15 Promyelocytes # (Man) Cancelled 11/09/21 16:15 Blast Cells # (Man) Cancelled 11/09/21 16:15 Plasma Cell # (Manual) Cancelled 11/09/21 16:15 Other Cells # Cancelled 11/09/21 16:15 Nucleated RBCs # (Man) Cancelled 11/09/21 16:15 Hypersegmented Neuts Cancelled 11/09/21 16:15 Hyposegmented Neuts Cancelled 11/09/21 16:15 Hypogranular Neuts Cancelled 11/09/21 16:15 Large Granular Lymphs Cancelled 11/09/21 16:15 # Lrg Granular Lymphs Cancelled 11/09/21 16:15 Hairy Cells Cancelled 11/09/21 16:15 Smudge Cells Cancelled 11/09/21 16:15 Toxic Granulation Cancelled 11/09/21 16:15 Toxic Vacuolation Cancelled 11/09/21 16:15 Dohle Bodies Cancelled 11/09/21 16:15 Tello Rods Cancelled 11/09/21 16:15 Platelet Estimate Cancelled 11/09/21 16:15 Hypogranular Platelets Cancelled 11/09/21 16:15 Clumped Platelets Cancelled 11/09/21 16:15 Giant Platelets Cancelled 11/09/21 16:15 Platelet Satelliting Cancelled 11/09/21 16:15 RBC Morphology Cancelled 11/09/21 16:15 Polychromasia Cancelled 11/09/21 16:15 Hypochromasia Cancelled 11/09/21 16:15 Poikilocytosis Cancelled 11/09/21 16:15 Basophilic Stippling Cancelled 11/09/21 16:15 Anisocytosis Cancelled 11/09/21 16:15 Microcytosis Cancelled 11/09/21 16:15 Macrocytosis Cancelled 11/09/21 16:15 Spherocytes Cancelled 11/09/21 16:15 Pappenheimer Bodies Cancelled 11/09/21 16:15 Sickle Cells Cancelled 11/09/21 16:15 Target Cells Cancelled 11/09/21 16:15 Tear Drop Cells Cancelled 11/09/21 16:15 Ovalocytes Cancelled 11/09/21 16:15 Stomatocytes Cancelled 11/09/21 16:15 Steve-Carlsborg Bodies Cancelled 11/09/21 16:15 Echinocytes Cancelled 11/09/21 16:15 Acanthocytes (Spur) Cancelled 11/09/21 16:15 Rouleaux Cancelled 11/09/21 16:15 RBC Agglutinates Cancelled 11/09/21 16:15 Schistocytes Cancelled 11/09/21 16:15 ESR 58 mm/hr (0-30) H 11/08/21 19:09 Sezary Cell Cancelled 11/09/21 16:15 PT 10.4 Seconds (9.0-12.0) 11/09/21 01:57 INR 1.0 (0.9-1.1) 11/09/21 01:57 APTT 26.5 Seconds (21.0-31.0) 11/12/21 07:57 PTT Ratio 1.0 11/12/21 07:57 Sodium 138 mmol/L (136-145) 11/12/21 07:57 Potassium 3.9 mmol/L (3.5-5.1) 11/12/21 07:57 Chloride 105 mmol/L (98-107) 11/12/21 07:57 Carbon Dioxide 28 mmol/L (21-32) 11/12/21 07:57 Anion Gap 5 (3-11) 11/12/21 07:57 BUN 12 mg/dl (6-23) 11/12/21 07:57 Creatinine 0.65 mg/dl (0.6-1.2) 11/12/21 07:57 Est Cr Clr Drug Dosing 153.2 ml/min 11/12/21 07:57 Est GFR ( Amer) 115.8 ml/min 11/12/21 07:57 Est GFR (Non-Af Amer) 99.9 ml/min 11/12/21 07:57 BUN/Creatinine Ratio 18.5 (10-20) 11/12/21 07:57 Glucose 112 mg/dl (70-99(Fasting)) H 11/12/21 07:57 POC Glucose 110 mg/dl (70-99) H 11/12/21 08:35 Estimat Average Glucose 114 mg/dl 11/09/21 01:57 Hemoglobin A1c 5.6 % (4.5-5.6) 11/09/21 01:57 Calcium 9.9 mg/dl (8.5-10.1) 11/12/21 07:57 Phosphorus 3.5 mg/dl (2.5-4.9) 11/12/21 07:57 Magnesium 1.7 mg/dl (1.7-2.4) 11/12/21 07:57 Total Bilirubin 0.4 mg/dl (0.2-1.0) 11/08/21 19:09 AST 14 U/L (13-39) 11/08/21 19:09 ALT 15 U/L (7-52) 11/08/21 19:09 Alkaline Phosphatase 85 U/L (34-104) 11/08/21 19:09 Troponin I High Sens 3.4 pg/ml (0-14) 11/12/21 07:57 C-Reactive Protein 0.58 mg/dl (0-0.5) H 11/08/21 19:09 Total Protein 7.6 gm/dl (6.0-8.3) 11/08/21 19:09 Albumin 4.1 gm/dl (3.4-5.0) 11/08/21 19:09 Globulin 3.5 gm/dl (2.5-4.0) 11/08/21 19:09 Albumin/Globulin Ratio 1.2 (0.9-2) 11/08/21 19:09 TSH 3.516 uIu/ml (0.300-4.500) 11/12/21 07:57 Hepatitis C Ab (EIA) REACTIVE (NON-REACTIVE) A 11/08/21 19:25 Hep C Ab Signal/Cutoff 26.90 (<1.00) H 11/08/21 19:25 SARS-CoV-2, RNA, NAAT NEGATIVE (NEGATIVE) 11/08/21 22:01 Impressions Tibia/Fibula X-Ray 11/08/21 18:07 XR tibia fibula LT 2V CLINICAL HISTORY: LLE pain, red, swelling, s/p surgery 09/30/2021 Comparison: None available at the time of this dictation. TECHNIQUE: 2 radiographic views of the left leg were obtained. FINDINGS: There is plate and screw fixation hardware about the tibia. Radiolucencies are seen compatible with fractures with bony bridging compatible with healing changes. The alignment is anatomic. Joint spaces are well-preserved. Soft tissue swelling is seen. This is most prominent about the knee. IMPRESSION: 1. Soft tissue swelling is seen most prominently about the knee, clinical correlation for cellulitis is recommended. 2. Comminuted fracture of the tibial plateau which is likely subacute, transfixed by plate and screw fixation and with healing changes. ACT 112: Negative or not required by law. Electronically signed by: Mykel Hodges M.D. 11/08/2021 7:05 PM Venous Doppler Study 11/08/21 18:07 US venous doppler LE LT CLINICAL HISTORY: pain, red, swelling, s/p surg 09/30/2021 TECHNIQUE: Left lower extremity real-time compression venous ultrasound with Color Doppler imaging. Utilizing real-time ultrasonic imaging multiple real time high-resolution ultrasonic images with compression and noncompression maneuvers of the deep venous system in addition to color doppler imaging were performed from the common femoral vein through the proximal calf veins. COMPARISON: None available at the time of this dictation. FINDINGS: Limited exam due to patient intolerance. A nonocclusive thrombus is seen in the left common femoral vein. No additional thrombus is noted. Impression: Nonocclusive thrombus is in the left common femoral vein. ACT 112: Negative or not required by law. Electronically signed by: Mykel Hodges M.D. 11/08/2021 8:57 PM Chest X-Ray 11/12/21 06:11 XR chest 1V portable HISTORY: 56 years-old Female cp acute atypical chest pain COMPARISON: None TECHNIQUE: Portable AP view of the chest FINDINGS: The cardiac silhouette is enlarged. Moderate right hemidiaphragmatic elevation. Hypoinflation with bronchovascular crowding. No pneumothorax, large pleural effusion or overt pulmonary edema. Bones of the chest appear grossly intact. Study is limited secondary to patient body habitus. IMPRESSION: 1. Hypoinflation with right hemidiaphragmatic elevation. 2. Cardiomegaly. ACT 112: Negative or not required by law. The above report was generated using voice recognition software. It may contain grammatical, syntax or spelling errors. Electronically signed by: Jonathan Collins M.D. 11/12/2021 7:12 AM
[2021-11-12] MEDS: GABAPENTIN 600 MG TAB PO SCH ×3 (11:11→19:30)
--- NOTE | 2021-11-12 12:44 | Electrocardiogram Report ---
Test Reason : Blood Pressure : / mmHG Vent. Rate : 080 BPM Atrial Rate : 080 BPM P-R Int : 176 ms QRS Dur : 082 ms QT Int : 368 ms P-R-T Axes : 048 042 016 degrees QTc Int : 424 ms Normal sinus rhythm Normal ECG No previous ECGs available Confirmed by Colton Aquino ([id number]) on 11/12/2021 12:43:32 PM Referred By: REFERRED SELF Confirmed By:Colton Aquino
[2021-11-12] MEDS: DAPTOmycin 600 MG in SYRINGE 0 ML IV SCH (14:45)
[2021-11-12] MEDS: METOPROLOL SUCC 25MG EXT REL TAB PO SCH (19:31)
[2021-11-13] MEDS: oxyCODONE/ACETAMINOPHEN 10-325 TAB PO PRN ×3 (02:17→14:40)
[2021-11-13] MEDS: PIPERACILLIN/TAZOBACTAM 4.5 GM in DEXTROSE 5% 100 ML IV SCH ×2 (05:48→14:09)
[2021-11-13] MEDS: ONDANSETRON 4 MG OD TAB PO PRN (07:42)
[2021-11-13] MEDS: PANTOprazole 40 MG TAB PO SCH (08:19)
[2021-11-13] MEDS: APIXABAN 5 MG TABLET PO SCH (08:19)
[2021-11-13] MEDS: GABAPENTIN 600 MG TAB PO SCH ×2 (08:19→14:21)
--- NOTE | 2021-11-13 09:21 | Hospitalist Progress Note ---
Date of Service November 13, 2021 Assessment & Plan (1) Acute deep vein thrombosis (DVT) of left lower extremity: (2) Deep incisional surgical site infection: Plan: 56 yo F w/ morbid obesity, history of sleep apnea, but not using CPAP because since she moved from [place] 3 years ago, she lost her CPAP and not using it, history of hypertension, GERD, history of prediabetes presented 11/08 to our ED w/ Left lower extremity infection. 1. Infected left tibia-fibula surgical site. The patient fell on 09/29/2021, had surgery on 09/30/2021 in [place]. Was in snf for 2 weeks, discharged on 10/22/2021. --> her daughter drove her back 10/23/2021 to [facility] from [place]. She was in the car for 28 hours. 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 Follow-up admitting blood culture and wound culture. Superficial culture, as well as cultx obtained in OR positive for E. coli and staph aureus (mssa) Continue with Dapto and Zosyn. ID was consulted, however patient refused to talk to them. I discussed with ID, if culture unchanged, patient could be discharged on p.o. Cipro and Doxy -as there was no hardware or bone involvement. Orthopedics consulted, pt is s/p I&D (11/09/21). Dressings reapplied/reinforced, change when becomes saturated 11/12 - Pt seen by pain management - gabapentin increased to 600 mg TID, start percocet 10/325 1 tablet p.o. every 4 hours 11/13 Pt is feeling better, pain much better controlled now. 2. Nonocclusive left common femoral deep venous thrombosis: Patient had recent long drive/immobility and orthopedic surgery. On IV heparin drip initially, then pt refused medication, then agreed to medication but not to frequent blood work. Eliquis started 3. Other chronic medical conditions: Prediabetes, HTN, GERD, morbid obesity Resume/continue with home meds as and when appropriate. Insulin sliding scale. FAB, morbid obesity Patient currently not using CPAP, recommend to obtain sleep study, to evaluate for sleep apnea. Patient reports having sleep study done in [place] 15 years ago. Also recommend dietitian consult to help patient with weight loss. Hep C positive - follow up w/ PCP/ GI DVT prophylaxis: Madi Admission and Anticipated Discharge Date Admission Date: November 08, 2021 Subjective Patient seen in follow-up of infected left tibia-fibula surgical site and nonocclusive left common femoral DVT. Patient is lying in bed, on room air, in [facility]. She was seen by pain management yesterday. Gabapentin dose was increased, and patient was started on Percocet. Currently says that she is feeling much better, and pain is controlled. She is supposed to be using CPAP for FAB, however she currently does not have it and does not want to use one in the hospital. Counseled her on importance of following up with PCP, and obtaining CPAP again. No chest pain, shortness of breath, palpitations, fevers chills, abd. pain, n ausea vomiting, or diarrhea. Review of Systems Review of Systems: All systems reviewed & are unremarkable except as noted in Subjective Physical Exam Physical Exam: GENERAL: morbidly obese F, not in acute distress. HEENT: NC/AT. EOMI. Pupils equal, round and reactive to light. Oral mucosa, absent teeth and moist. NECK: No JVD, no neck masses. CARDIOVASCULAR: S1 and S2 heard. Regular rate and rhythm. No murmur, no gallop. RESPIRATORY SYSTEM: Normal AP diameter. No accessory muscle use. No wheezing, no crackles. ABDOMEN: Soft. Bowel sounds are present, nontender, no distention. NEURO: Alert and oriented. Speech is clear. No facial droop. Obeys simple commands.Moves extremities. EXTREMITIES:on admission - Left tibia-fibula surgical site w/ deep open wound and drainage seen. Some erythematous changes seen. Some swelling seen. Now s/p I&D, surgical dressings on left lower extremity applied. Results & Data Results & Data ([facility]) Vital Signs (Past 12 Hours) Vital Signs Temp Pulse Resp BP Pulse Ox 11/13/21 07:14 36.8 C 82 16 107/71 93 Medications Administered Current Inpatient Medications Acetaminophen (Acetaminophen 325 Mg Tab) 650 mg PO Q4H PRN PRN Reason: pain/fever Stop: 12/09/21 00:00 Last Admin: 11/10/21 20:13 Dose: 650 mg Documented by: Apixaban (Apixaban 5 Mg Tablet) 10 mg PO BID RADHA Stop: 11/17/21 20:59 Last Admin: 11/13/21 08:19 Dose: 10 mg Documented by: Dextrose (Dextrose 50% 50 Ml Syringe) 25 - 50 ml IV UD PRN; Protocol PRN Reason: Hypoglycemia Protocol Stop: 12/09/21 00:44 Gabapentin (Gabapentin 600 Mg Tab) 600 mg PO TID RADHA Stop: 12/12/21 08:59 Last Admin: 11/13/21 08:19 Dose: 600 mg Documented by: Glucagon (Glucagon For Inj 1 Mg Vial) 1 mg IM UD PRN; Protocol PRN Reason: Hypoglycemia Protocol Stop: 12/09/21 00:44 Glucose (Glucose 40% Gel 15 Gm Tube) 15 - 30 gm PO UD PRN; Protocol PRN Reason: Hypoglycemia Protocol Stop: 12/09/21 00:44 Glucose (Glucose 10 Tabs/Tube) 4 - 8 tabs PO UD PRN; Protocol PRN Reason: Hypoglycemia Protocol Stop: 12/09/21 00:44 Piperacillin Sod/Tazobactam (Sod 4.5 gm/ Dextrose) 120 mls @ 30 mls/hr IV Q8H RADHA; Protocol Stop: 11/16/21 05:59 Last Admin: 11/13/21 05:48 Dose: 30 mls/hr Documented by: Daptomycin 600 mg/ Syringe 12 mls @ 6 mls/min IV Q24H RADHA; Protocol Stop: 11/16/21 11:59 Last Admin: 11/12/21 14:45 Dose: 6 mls/min Documented by: Insulin Aspart (Insulin Aspart Per Unit) 0 units SC ACHS RADHA Stop: 12/09/21 07:29 Last Admin: 11/12/21 21:11 Dose: Not Given Documented by: Metoprolol Succinate (Metoprolol Succ 25mg Ext Rel Tab) 25 mg PO QPM RADHA Stop: 12/09/21 20:59 Last Admin: 11/12/21 19:31 Dose: 25 mg Documented by: Miscellaneous (Carbohydrates For Hypoglycemia ) 15 - 30 gm PO UD PRN PRN Reason: Hypoglycemia Treatment Stop: 12/09/21 00:44 Morphine Sulfate (Morphine Sulfate 4 Mg/Ml 1 Ml Carp\Vial) 3 mg IV Q3H PRN PRN Reason: Pain Stop: 11/24/21 14:07 Last Admin: 11/11/21 11:02 Dose: 3 mg Documented by: Ondansetron HCl (Ondansetron Inj 2 Mg/Ml 2 Ml Vial) 4 mg IV Q6H PRN PRN Reason: Nausea Stop: 12/09/21 00:00 Ondansetron HCl (Ondansetron 4 Mg Od Tab) 4 mg PO TID PRN PRN Reason: Nausea And Vomiting Stop: 12/09/21 00:35 Last Admin: 11/13/21 07:42 Dose: 4 mg Documented by: Oxycodone/Acetaminophen (Oxycodone/Acetaminophen 10-325 Tab) 1 tab PO Q4H PRN PRN Reason: Pain Stop: 11/26/21 08:36 Last Admin: 11/13/21 07:41 Dose: 1 tab Documented by: Pantoprazole Sodium (Pantoprazole 40 Mg Tab) 40 mg PO DAILY RADHA Stop: 12/09/21 08:59 Last Admin: 11/13/21 08:19 Dose: 40 mg Documented by: Polyethylene Glycol (Polyethylene (Miralax) 17 Gm Pack) 17 gm PO DAILY PRN PRN Reason: Constipation Stop: 12/09/21 00:00 Last Admin: 11/10/21 20:22 Dose: 17 gm Documented by: (1) Acute deep vein thrombosis (DVT) of left lower extremity Affected thrombotic vein of extremity: femoral Qualified Code(s): I82.412 - Acute embolism and thrombosis of left femoral vein
[2021-11-13] MEDS: INSULIN ASPART PER UNIT SC SCH ×3 (10:49→14:04)
[2021-11-13] MEDS: DAPTOmycin 600 MG in SYRINGE 0 ML IV SCH (11:33)
[2021-11-13] MEDS ORDERED: SENNA 8.6 MG TAB PO SCH (14:00)
[2021-11-13] MEDS ORDERED: ADVANCED PROBIOTIC 1250 MG CAPSULE PO SCH (14:00)
--- NOTE | 2021-11-13 14:08 | Discharge Summary ---
Date of Service November 13, 2021 Admission HPI Per Admitting Provider This is a 56-year-old female with past medical history significant for morbid obesity, history of sleep apnea, but not using CPAP because since she moved from [place] three years ago, she lost her CPAP and not using it, history of hypertension, GERD, history of prediabetes. Presents with left lower extremity infection. The patient was in [place] in the month of September and she had a fall in her daughter's porch on 09/29/21 and had left tibia-fibula fracture status post admitted to hospital for surgical repair 09/30/21 and was seen in a halfway for 3 weeks and on 10/22/2021, she was discharged from halfway and daughter drove her back to [employer] the next day on 10/23/2021 and she was in a car for 28 hours. She lives with her sister and she is now having poor ambulatory status and she is not ambulating, she could not put weight on the leg. She only slides from the bed and has a bedside commode. Her family doctor about a week ago given Keflex for 1 week, which she has still 2 more days to go.. She made appointment with orthopedics, but it is not until next month. She says he is not getting better and a lot of pain in the leg which brought her to the hospital. Currently, the patient denies any fever or chills. No headache, no dizziness, no blurred visions, no earache, no runny nose, no sore throat, no cough, no chest pain, no shortness of breath. No nausea, no vomiting, no abdominal pain. Normal bowel and bladder movements.Says she has gallbladder disease and has on and off nausea and diarrhea. Admission Exam Per Admitting Provider GENERAL: The patient is morbidly obese, not in acute distress. VITAL SIGNS: Temperature 36.4, pulse 82, respiratory rate 20, blood pressure 107/74, oxygen 95% on room air. HEENT: Pupils equal, round and reactive to light. Oral mucosa, absent teeth and moist. NECK: No JVD, no neck masses. CARDIOVASCULAR: S1 and S2 heard. Regular rate and rhythm. No murmur, no gal lop. RESPIRATORY SYSTEM: Normal AP diameter. No accessory muscle use. No wheezing, no crackles. ABDOMEN: Soft. Bowel sounds are present, nontender, no distention. CENTRAL NERVOUS SYSTEM: Alert and oriented. Speech is clear. No facial droop. Obeys simple commands. Insight is good. Moves extremities. EXTREMITIES: Left tibia-fibula surgical site has deep open wound and drainage seen. Some erythematous changes seen. Some swelling seen. Principal Diagnosis Infected left tibia-fibula surgical site Acute deep vein thrombosis (DVT) of left lower extremity Discharge Exam GENERAL: morbidly obese F, not in acute distress. HEENT: NC/AT. EOMI. Pupils equal, round and reactive to light. Oral mucosa, absent teeth and moist. NECK: No JVD, no neck masses. CARDIOVASCULAR: S1 and S2 heard. Regular rate and rhythm. No murmur, no gallop. RESPIRATORY SYSTEM: Normal AP diameter. No accessory muscle use. No wheezing, no crackles. ABDOMEN: Soft. Bowel sounds are present, nontender, no distention. NEURO: Alert and oriented. Speech is clear. No facial droop. Obeys simple commands.Moves extremities. EXTREMITIES:on admission - Left tibia-fibula surgical site w/ deep open wound and drainage seen. Some erythematous changes seen. Some swelling seen. Now s/p I&D, surgical dressings on left lower extremity applied. Discharge Data Allergies Allergy/AdvReac Type Severity Reaction Status Date / Time hydroxyzine Allergy Severe Anaphylaxis Verified 11/09/21 00:25 Consultations 11/08/21 21:30 ED Decision to Admit Stat 11/09/21 08:00 Consult Orthopedic Surgery Routine 11/09/21 17:07 Consult Infectious Diseases Routine 11/10/21 11:59 Consult Psychiatry Routine 11/11/21 14:52 Consult Pain Management Routine Procedures Performed Operation Date: 11/09/21 12:00 Actual Procedures p Left Leg Incision and Drainage - Devin Wilmar Rodriguez MD Ordered Studies 11/08/21 18:07 US venous doppler LE LT Stat Impression: Nonocclusive thrombus is in the left common femoral vein. Hospital Course (1) Acute deep vein thrombosis (DVT) of left lower extremity: (2) Deep incisional surgical site infection: 56 yo F w/ morbid obesity, history of sleep apnea, but not using CPAP because since she moved from [place] 3 years ago, she lost her CPAP and not using it, history of hypertension, GERD, history of prediabetes presented 11/08 to our ED w/ Left lower extremity infection. 1. Infected left tibia-fibula surgical site. The patient fell on 09/29/2021, had surgery on 09/30/2021 in [place]. Was in halfway for 2 weeks, discharged on 10/22/2021. --> her daughter drove her back 10/23/2021 to [employer] from [place]. She was in the car for 28 ho urs. 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 Follow-up admitting blood culture and wound culture. Superficial culture, as well as cultx obtained in OR positive for E. coli and staph aureus (mssa) Continue with Dapto and Zosyn. ID was consulted, however patient refused to talk to them. I discussed with ID, if culture unchanged, patient could be discharged on p.o. Cipro and Doxy -as the re was no hardware or bone involvement. Orthopedics consulted, pt is s/p I&D (11/09/21). Dressings reapplied/reinforced, change when becomes saturated 11/12 - Pt seen by pain management - gabapentin increased to 600 mg TID, start percocet 10/325 1 tablet p.o. every 4 hours 11/13 Pt is feeling better, pain much better controlled now. 2. Nonocclusive left common femoral deep venous thrombosis: Patient had recent long drive/immobility and orthopedic surgery. On IV heparin drip initially, then pt refused medication, then agreed to medication but not to frequent blood work. Eliquis started 3. Other chronic medical conditions: Prediabetes, HTN, GERD, morbid obesity Resume/continue with home meds as and when appropriate. Insulin sliding scale. FAB, morbid obesity Patient currently not using CPAP, recommend to obtain sleep study, to evaluate f or sleep apnea. Patient reports having sleep study done in [place] 15 years ago. Also recommend dietitian consult to help patient with weight loss. Hep C positive - follow up w/ PCP/ GI Total Time Total Time Spent Total Time Spent (In Minutes): 40 Discharge Plan Discharge Items Patient Disposition: Home - Self-Care Reason For Visit: LEG PAIN Discharge Diagnosis: Infected left tibia-fibula surgical site Acute deep vein thrombosis (DVT) of left lower extremity Activity: Per Instructions section Non-emergency contact: Primary Care Provider Call non-emergency contact if: you have any medication questions and your symptoms worsen Follow-up/Referrals: Fátima Reyes [Outside Practitioners] - Diet: Heart Healthy Roslyn Attending Provider Instructions: Follow up with your primary care doctor within 1-2 weeks. Follow-up with orthopedics, on November 18, as below. For blood clot, take Eliquis 10 mg twice a day for next 5 days, then take 5 mg twice a day. Discuss with your primary care doctor, how long you should be on this medication. Finish antibiotic treatment with ciprofloxacin and doxycycline, as prescribed. For pain, take gabapentin 600 mg 3 times a day, and for more severe pain, take Percocet as needed, as prescribed. It is also recommended that you have a sleep study done (to evaluate sleep apnea), and that you see a dietitian to help you with weight loss. Take probiotics, while on antibiotics, as this can prevent any stomach upsets from antibiotics. Also recommend that you take a stool softener, such as MiraLAX or senna, while taking pain medication such as Percocet, as this can make you constipated. Roslyn Favor Maker Provider Instructions: Per orthopedics Follow up with Naomy at the office on November 18 at 8:30am for a dressing change/wound check. Ice and elevate the leg frequently to reduce pain/swelling. DIET: * Resume previous diet. MEDICATIONS: * Please take your prescriptions as instructed at your pre-op appointment and/or see medication discharge instructions listed above. * If concerns develop, call your physician's office at . SPECIAL CARE INSTRUCTIONS: * Ice/Elevate as instructed. * Keep dressing clean, dry, intact. Call your doctor at [phone] if: * Temperature above 101 degrees * Pain not relieved by pain medicine ordered * There is increased drainage or redness from any incision * You have any unanswered questions, problems or concerns. FOLLOW UP VISIT: * If not already scheduled, please call the office at to schedule a follow-up appointment. Pending Studies at Discharge: Yes Studies:: final wound culture Stand-Alone Forms: [employer], Smoking Cessation Medications and DC Order Prescriptions: New Eliquis 5 mg tablet 5 mg PO BID Qty: 60 RF: 0 gabapentin 600 mg Tablet 600 mg PO TID Qty: 14 RF: 0 oxycodone-acetaminophen 10-325 mg Tablet 1 tab PO Q4H PRN (Reason: pain 7-10) Qty: 14 RF: 0 ciprofloxacin HCl 500 mg tablet 500 mg PO BID 10 Days Qty: 20 RF: 0 doxycycline hyclate 100 mg tablet 100 mg PO BID 10 Days Qty: 20 RF: 0 Advanced Probiotic 625 mg (10 billion cell) Capsule 2 cap PO DAILY Qty: 14 RF: 0 Continued metoprolol succinate 25 mg tablet extended release 24 hr 25 mg PO QPM RF: 0 pantoprazole 40 mg tablet,delayed release (DR/EC) 40 mg PO DAILY RF: 0 ondansetron HCl 4 mg tablet 4 mg PO TID PRN (Reason: Nausea) RF: 0 cholecalciferol (vitamin D3) 1,250 mcg (50,000 unit) Tablet 50,000 unit PO WK RF: 0 aspirin [Aspir-Low] 81 mg Tablet,Delayed Release (Dr/Ec) 81 mg PO DAILY RF: 0 Farxiga 10 mg tablet 10 mg PO DAILY RF: 0 ibuprofen [Motrin IB] 200 mg Tablet 600 mg PO BID PRN (Reason: Pain) RF: 0 acetaminophen [Tylenol Ex Str Rapid Release] 500 mg Tablet 1,000 mg PO BID PRN (Reason: Pain) RF: 0 naproxen sodium [Aleve] 220 mg Tablet 440 mg PO .WITH MAXINE MEAL PRN (Reason: Pain) RF: 0 Discontinued oxycodone 5 mg tablet 2.5 - 5 mg PO TID PRN (Reason: Pain) RF: 0 cephalexin 500 mg capsule 500 mg PO TID RF: 0 Discharge Orders: Discharge Order (Routine); Ordered 11/13/21 Ordered By: Prakash Bullock Admission Data Admit Date/Time: 11/08/21 23:13 Attending Provider: Prakash Bullock Admit Provider: Pablo Cerda Primary Care Provider: PCP,NO Other Providers: Pablo Cerda ; Devin Rodriguez ; Anmol Villagran ; Cam Olson ; Dakota Vu I. ; Marcio Suarez II ; Anahy Grijalva ; Zbigniew Mckeon ; Sampson Neville ; Alondra Gong ; [facility] ; Irena Ramos ; Georgie Boucher ; Pam Akbar ; Natalia Dockery
[2021-11-13] MEDS ORDERED: LOPERAMIDE HCL 2 MG CAP PO STA (14:17)
== END 2021-11-13 15:02 | disposition home health service (06) | DRG 863 ==
LOC: ED 16:55 → 3N 23:13 → SUATTDRO 23:13 → 3N 23:47